=== PATIENT | male | born 1950 | race Caucasian/White ===

== ENCOUNTER 2017-02-12 08:27 | Day surgery (SDC) | payer MEDICARE ==
[2017-02-07 09:00] VITALS: BMI 32.2
[~2017-02-12 08:27] MED LIST: LACTATED RINGERS 1,000 ML IV SCH; LIDOCAINE 1% 20 ML VIAL (10MG/ML) FOR IV START INTRADERMA PRN
[2017-02-12 08:37] VITALS: TEMP 98.1
[2017-02-12] MEDS ORDERED: LACTATED RINGERS 1,000 ML IV ONE (08:39)
[2017-02-12] MEDS ORDERED: PROPOFOL 10 MG/ML 20 ML VIAL IV ONE (09:44)
--- NOTE | 2017-02-12 09:48 | P.GSHP ---
History of Present Illness H&P Date: 02/12/17 Chief Complaint: Screening Patient here today for colonoscopy. He has not had one for at least the last 5 years. He does have a history of previous polyps. He has had a colon resection for diverticulitis. He has had some vague left-sided abdominal pain at times. Past Medical History Past Medical History: Asthma, Cancer Additional Past Medical History / Comment(s): HX: Diverticulitis, prostate adenocarcinoma with surgery, L ear melanoma with sx, renal calculi with sx, sinus problems, psoriasis, small airway obstruction. History of Any Multi-Drug Resistant Organisms: None Reported Past Surgical History: Bowel Resection, Hernia Repair, Prostate Surgery Additional Past Surgical History / Comment(s): Open radical prostatectomy, L ear melanoma removed, low anterior bowel resection, extracorporeal shock wave lithrotripsy L renal calculi, bilateral kidney stone removal, bilateral inguinal hernia repairs. Past Anesthesia/Blood Transfusion Reactions: No Reported Reaction Additional Past Anesthesia/Blood Transfusion Reaction / Comment(s): Pt has never recieved blood. Past Psychological History: No Psychological Hx Reported Smoking Status: Never smoker Past Alcohol Use History: Occasional Past Drug Use History: None Reported - Past Family History Father Family Medical History: Cancer Additional Family Medical History / Comment(s): Father of prostate cancer. Mother Family Medical History: Myocardial Infarction ([place]) Additional Family Medical History / Comment(s): Mother had a CO in her 70's. Brother(s) Family Medical History: Myocardial Infarction ([place]) Additional Family Medical History / Comment(s): Brother of a CO in his upper 60's. Medications and Allergies Home Medications Medication Instructions Recorded Confirmed Type Budesonide/Formoterol Fumarate 1 puff INHALATION RT-BID 06/30/16 02/07/17 History [Symbicort 160-4.5 Mcg Inhaler] Cetirizine HCl [Zyrtec] 10 mg PO DAILY 06/30/16 02/07/17 History Cholecalciferol [Vitamin D3] 2,000 unit PO DAILY 06/30/16 02/07/17 History Fluticasone Nasal [place] [Flonase 2 spr EA NOSTRIL DAILY PRN 06/30/16 02/07/17 History Nasal [place]] Hydrochlorothiazide 12.5 mg PO DAILY 06/30/16 02/07/17 History guaiFENesin SYRUP 100MG/5ML 300 mg PO Q6H PRN 06/30/16 02/07/17 History [Robitussin] guaiFENesin [Mucinex] 600 mg PO BID PRN 06/30/16 02/07/17 History Montelukast [Singulair] 10 mg PO HS 02/07/17 02/07/17 History Ranitidine HCl [Zantac] 75 mg PO BID 02/07/17 02/07/17 History Allergies Allergy/AdvReac Type Severity Reaction Status Date / Time No Known Allergies Allergy Verified 02/07/17 08:51 Surgical - Exam Vital Signs Temp Pulse Resp BP Pulse Ox 98.1 F 98 18 146/96 95 02/12/17 08:36 02/12/17 08:36 02/12/17 08:36 02/12/17 08:36 02/12/17 08:36 Physical exam: General: Well-developed, well-nourished HEENT: Normocephalic, sclerae nonicteric Abdomen: Nontender, nondistended Extremities: No edema Neuro: Alert and oriented Assessment and Plan (1) Colon cancer screening Narrative/Plan: Will proceed with colonoscopy at this time. Status: Acute
--- NOTE | 2017-02-12 10:03 | P.PCN ---
Date of Procedure: 02/12/17 Preoperative Diagnosis: Postoperative Diagnosis: Procedure(s) Performed: PREOPERATIVE DIAGNOSIS: History of polyps, screening POSTOPERATIVE DIAGNOSIS: Small rectal polyp, diverticulosis PROCEDURE: Colonoscopy with snare polypectomy ANESTHESIA: MAC SURGEON: Eric Gates M.D. SPECIMENS: Rectal polyp ENDOSCOPIC PROCEDURE: The patient was placed on the endoscopy table in the left decubitus position. The Olympus colonoscope was inserted into the anus and passed under direct visualization to the base of the cecum. The appendiceal orifice was visualized. From that point the scope was slowly withdrawn inspecting all surfaces carefully. There were no neoplastic inflammatory or polypoid lesions throughout the cecum, ascending, transverse, or descending colon. The anastomosis from the previous sigmoid resection was visualized and widely patent. A small polyp was seen distal to that in the rectum and this was removed using the snare with cautery technique. The remainder the rectum appeared normal. The patient still had diverticulosis seen scattered throughout the colon. Digital rectal examination was normal. The patient was taken to the recovery room in stable condition per anesthesia guidelines. RECOMMENDATIONS: Await biopsy results. Follow colonoscopy 5 years. Implants: Indications for Procedure: Operative Findings: Description of Procedure:
[2017-02-12 10:11] VITALS: BP 120/73; RESP 16
[2017-02-12 10:19] VITALS: PULSE 88
== END 2017-02-12 10:48 | disposition home or self-care (01) ==
LOC: ORWHC2ENDO 08:27
PROVIDERS: ATTEND Surgery
DX: Z12.11 Encounter for screening for malignant neoplasm of colon (principal); K62.1 Rectal polyp; K57.30 Diverticulosis of large intestine without perforation or abscess without bleeding; Z86.010 Personal history of colon polyps; Z90.49 Acquired absence of other specified parts of digestive tract; Z87.19 Personal history of other diseases of the digestive system; J45.909 Unspecified asthma, uncomplicated; I10 Essential (primary) hypertension; Z79.51 Long term (current) use of inhaled steroids; Z79.899 Other long term (current) drug therapy
CPT/HCPCS: 88305; 45385; J2704

== ENCOUNTER → 2017-10-02 | Outpatient (CLI) | payer MEDICARE ==
[2017-10-02 09:55] LABS: ALT 88 U/L (21-72); AST 43 U/L (17-59); Cholesterol 142 mg/dL (<200); Creatine Kinase 56 U/L (55-170); HDL Cholesterol 35 mg/dL (40-60); LDL Cholesterol,Calculated 80 mg/dL (0-99); Triglycerides 133 mg/dL (<150)
[2017-10-03 03:44] LABS: Hepatitis A Ab, Total Non-Reactive (Non-Reactive); Hepatitis A Antibody IgM Non-Reactive (Non-Reactive)
== END | disposition home or self-care (01) ==
LOC: LABWHC1 08:52
PROVIDERS: ATTEND Internal Medicine Interventional Cardiology
DX: E78.5 Hyperlipidemia, unspecified (principal); R74.8 Abnormal levels of other serum enzymes
CPT/HCPCS: 36415; 80061; 82550; 82977; 84450; 84460; 86708; 86709

== ENCOUNTER 2017-10-19 22:04 | Emergency (ER) | payer MEDICARE ==
[2017-10-19] MEDS ORDERED: SODIUM CHLORIDE 0.9% 1,000 ML IV STA (23:07)
[2017-10-19 23:45] LABS: Basophils # (A) 0.1 k/uL (0-0.2); Basophils % (A) 1 %; Eosinophils # (A) 0.5 k/uL (0-0.7); Eosinophils % (A) 6 %; HCT 44.3 % (39.0-53.0); Lymphocytes # (A) 2.9 k/uL (1.0-4.8); Lymphocytes % (A) 29 %; MCH 28.3 pg (25.0-35.0); MCHC 33.8 g/dL (31.0-37.0); MCV 83.9 fL (80.0-100.0); Mean Platelet Volume 7.5; Monocytes # (A) 0.7 k/uL (0-1.0); Monocytes % (A) 7 %; Neutrophils # (A) 5.5 k/uL (1.3-7.7); Neutrophils % (A) 55 %; Platelet Count 253 k/uL (150-450); RBC 5.28 m/uL (4.30-5.90); RDW 13.3 % (11.5-15.5); WBC 9.9 k/uL (3.8-10.6)
[2017-10-19] MEDS ORDERED: SODIUM CHLORIDE 0.9% 1,000 ML IV SCH (23:45)
[2017-10-19] MEDS ORDERED: cloNIDine HCL 0.2 MG TAB PO STA (23:52)
[2017-10-19 23:53] LABS: Partial Thromboplastin Time 24.2 sec (22.0-30.0); Prothrombin Time 9.9 sec (9.0-12.0)
--- NOTE | 2017-10-19 23:53 | ED ---
Neuro HPI - General Chief Complaint: Neuro Symptoms/Deficit Stated Complaint: numbness in arm & legs Time Seen by Provider: 10/19/17 22:50 Source: patient, RN notes reviewed, old records reviewed Mode of arrival: ambulatory Limitations: no limitations - History of Present Illness Is the patient presenting with stroke symptoms?: No Initial Comments: This patient is a 67-year-old male presents emergency department today with an episode of left hand numbness sensation and paresthesias that lasted for approximately 5 minutes. He states that shortly after the left hand symptoms he had some paresthesias going to his right thigh. He states he had no motor deficits. He reports that he has no history of TIAs or any other neurological disorders. Patient states that he does have a history of high blood pressure and asthma. He denies any chest pain or shortness of breath. He states he had an episode where he felt dizzy the past day but states he feels fine at this time. Patient reports that he was concerned of his paresthesia symptoms and wanted to be checked out to make sure he was not having any issues with his heart or stroke. He arrives with mildly elevated blood pressure. He states that he takes his medication regularly. - Related Data Home Medications: Home Medications Medication Instructions Recorded Confirmed Budesonide/Formoterol Fumarate 1 puff INHALATION RT-BID 06/30/16 10/19/17 [Symbicort 160-4.5 Mcg Inhaler] Cetirizine HCl [Zyrtec] 10 mg PO DAILY 06/30/16 10/19/17 Cholecalciferol [Vitamin D3] 2,000 unit PO DAILY 06/30/16 10/19/17 Hydrochlorothiazide 12.5 mg PO DAILY 06/30/16 10/19/17 guaiFENesin [Mucinex] 600 mg PO BID PRN 06/30/16 10/19/17 Montelukast [Singulair] 10 mg PO HS 02/07/17 10/19/17 Ranitidine HCl [Zantac] 75 mg PO BID 02/07/17 10/19/17 Allergies/Adverse Reactions: Allergies Allergy/AdvReac Type Severity Reaction Status Date / Time No Known Allergies Allergy Verified 10/19/17 22:34 Review of Systems ROS Statement: Those systems with pertinent positive or pertinent negative responses have been documented in the HPI. ROS Other: All systems not noted in ROS Statement are negative. General Exam - General Exam Comments Initial Comments: Well-appearing alert and oriented 67-year-old male. No acute distress. Limitations: no limitations Head exam: Present: atraumatic, normocephalic, normal inspection Eye exam: Present: normal appearance, PERRL, EOMI. Absent: scleral icterus, conjunctival injection, periorbital swelling ENT exam: Present: normal exam, mucous membranes moist Neck exam: Present: normal inspection. Absent: tenderness, meningismus, lymphadenopathy Respiratory exam: Present: normal lung sounds bilaterally. Absent: respiratory distress, wheezes, rales, rhonchi, stridor Cardiovascular Exam: Present: regular rate, normal rhythm, normal heart sounds. Absent: systolic murmur, diastolic murmur, rubs, gallop, clicks GI/Abdominal exam: Present: soft, normal bowel sounds. Absent: distended, tenderness, guarding, rebound, rigid Extremities exam: Present: normal inspection, full ROM, normal capillary refill. Absent: tenderness, pedal edema, joint swelling, calf tenderness Back exam: Present: normal inspection Neurological exam: Present: alert Expanded Patient oriented to: Present: person, place, time Speech: Present: fluid speech Cranial nerves: EOM's Intact: Normal, Facial Sensation: Normal Cerebellar function: Finger to Nose: Normal Upper motor neuron: Pronator Drift: Normal Sensory exam: Upper Extremity Light Touch: Normal, Lower Extremity Light Touch: Normal Motor strength exam: RUE: 5, LUE: 5, RLE: 5, LLE: 5 Eye Response: (4) open spontaneously Motor Response: (6) obeys commands Verbal Response: (5) oriented [place] Total: 15 Psychiatric exam: Present: normal affect, normal mood Stroke MDM - Lab Data Result diagrams: 10/19/17 23:23 10/19/17 23:23 Lab Results 10/19/17 10/19/17 10/19/17 Range/Units 23:23 23:23 23:23 WBC 9.9 (3.8-10.6) k/uL RBC 5.28 (4.30-5.90) m/uL Hgb 15.0 (13.0-17.5) gm/dL Hct 44.3 (39.0-53.0) % MCV 83.9 (80.0-100.0) fL MCH 28.3 (25.0-35.0) pg MCHC 33.8 (31.0-37.0) g/dL RDW 13.3 (11.5-15.5) % Plt Count 253 (150-450) k/uL Neutrophils % 55 % Lymphocytes % 29 % Monocytes % 7 % Eosinophils % 6 % Basophils % 1 % Neutrophils # 5.5 (1.3-7.7) k/uL Lymphocytes # 2.9 (1.0-4.8) k/uL Monocytes # 0.7 (0-1.0) k/uL Eosinophils # 0.5 (0-0.7) k/uL Basophils # 0.1 (0-0.2) k/uL PT (9.0-12.0) sec INR (<1.2) APTT (22.0-30.0) sec Sodium 143 (137-145) mmol/L Potassium 3.6 (3.5-5.1) mmol/L Chloride 104 (98-107) mmol/L Carbon Dioxide 25 (22-30) mmol/L Anion Gap 14 mmol/L BUN 18 (9-20) mg/dL Creatinine 0.90 (0.66-1.25) mg/dL Est GFR (CKD-EPI)AfAm >90 (>60 ml/min/1.73 sqM) Est GFR (CKD-EPI)NonAf 89 (>60 ml/min/1.73 sqM) Glucose 140 H (74-99) mg/dL Calcium 9.7 (8.4-10.2) mg/dL Magnesium 1.7 (1.6-2.3) mg/dL Total Bilirubin 0.4 (0.2-1.3) mg/dL AST 30 (17-59) U/L ALT 51 (21-72) U/L Alkaline Phosphatase 54 (38-126) U/L Total Creatine Kinase 42 L (55-170) U/L CK-MB (CK-2) 0.5 (0.0-2.4) ng/mL CK-MB (CK-2) Rel Index 1.2 Troponin I <0.012 (0.000-0.034) ng/mL Total Protein 6.8 (6.3-8.2) g/dL Albumin 3.9 (3.5-5.0) g/dL Urine Color Urine Appearance (Clear) Urine pH (5.0-8.0) Ur Specific [place] (1.001-1.035) Urine Protein (Negative) Urine Glucose (UA) (Negative) Urine Ketones (Negative) Urine Blood (Negative) Urine Nitrite (Negative) Urine Bilirubin (Negative) Urine Urobilinogen (<2.0) mg/dL Ur Leukocyte Esterase (Negative) 10/19/17 10/19/17 Range/Units 23:23 23:51 WBC (3.8-10.6) k/uL RBC (4.30-5.90) m/uL Hgb (13.0-17.5) gm/dL Hct (39.0-53.0) % MCV (80.0-100.0) fL MCH (25.0-35.0) pg MCHC (31.0-37.0) g/dL RDW (11.5-15.5) % Plt Count (150-450) k/uL Neutrophils % % Lymphocytes % % Monocytes % % Eosinophils % % Basophils % % Neutrophils # (1.3-7.7) k/uL Lymphocytes # (1.0-4.8) k/uL Monocytes # (0-1.0) k/uL Eosinophils # (0-0.7) k/uL Basophils # (0-0.2) k/uL PT 9.9 (9.0-12.0) sec INR 1.0 (<1.2) APTT 24.2 (22.0-30.0) sec Sodium (137-145) mmol/L Potassium (3.5-5.1) mmol/L Chloride (98-107) mmol/L Carbon Dioxide (22-30) mmol/L Anion Gap mmol/L BUN (9-20) mg/dL Creatinine (0.66-1.25) mg/dL Est GFR (CKD-EPI)AfAm (>60 ml/min/1.73 sqM) Est GFR (CKD-EPI)NonAf (>60 ml/min/1.73 sqM) Glucose (74-99) mg/dL Calcium (8.4-10.2) mg/dL Magnesium (1.6-2.3) mg/dL Total Bilirubin (0.2-1.3) mg/dL AST (17-59) U/L ALT (21-72) U/L Alkaline Phosphatase (38-126) U/L Total Creatine Kinase (55-170) U/L CK-MB (CK-2) (0.0-2.4) ng/mL CK-MB (CK-2) Rel Index Troponin I (0.000-0.034) ng/mL Total Protein (6.3-8.2) g/dL Albumin (3.5-5.0) g/dL Urine Color Yellow Urine Appearance Clear (Clear) Urine pH 6.5 (5.0-8.0) Ur Specific [place] 1.019 (1.001-1.035) Urine Protein Negative (Negative) Urine Glucose (UA) Negative (Negative) Urine Ketones Negative (Negative) Urine Blood Negative (Negative) Urine Nitrite Negative (Negative) Urine Bilirubin Negative (Negative) Urine Urobilinogen <2.0 (<2.0) mg/dL Ur Leukocyte Esterase Negative (Negative) - NIH Stroke Scale 1a. Level of Consciousness: (0) alert 1b. LOC Questions: (0) answers correctly 1c. LOC Commands: (0) performs tasks correctly 2. Best Gaze: (0) normal 3. Visual: (0) no visual loss 4. Facial Palsy: (0) normal symmetrical movement 5a. Motor Arm Left: (0) no drift 5b. Motor Arm Right: (0) no drift 6a. Motor Leg Left: (0) no drift 6b. Motor Leg Right: (0) no drift 7. Limb Ataxia: (0) absent 8. Sensory: (0) normal 9. Best Language: (0) no aphasia 10. Dysarthria: (0) normal 11. Extinction/Inattention: (0) no abnormality NIH Score total: 0 - Medical Decision Making Patient 67-year-old male with a history of paresthesias of the left hand and then shortly after his right thigh. He states this happened for approximately 10 minutes and subsided. Denies any significant headache chest pain shortness of breath. Return to the symptoms and wanted to rule out stroke or any cardiac issues. This time patient's EKG was reviewed. Shows right bundle-branch block. He had minimal voltage [place] for LVH. Patient reports that he is had this known on his EKGs. Troponins are negative. CBC is normal. Chest x- ray is normal. CT brain and C-spine are negative. He has no focal or lateralizing findings on neuro exam. Patient otherwise appears chronically well. Discussed possible [place] for further evaluation regards to episode of dizziness and these paresthesias and possible TIA. Patient elects to go home. ABCD score is less than 1%. Patient will be discharged home at this time. Discussed the importance of following up with primary care provider tomorrow. All questions were answered and return parameters were discussed. - EKG Data -: EKG Interpreted by Me EKG shows normal: sinus rhythm 10/20/17 04:02 EKG shows sinus rhythm,) arrange block. Left anterior fascicular block. Minimal voltage criteria for LVH. Ventricular rate of 80 bpm. RI interval 140 ms. QRS duration 142 ms. QT QTc is 380/505 ms. Past Medical History Past Medical History: Asthma, Cancer Additional Past Medical History / Comment(s): HX: Diverticulitis, prostate adenocarcinoma with surgery, L ear melanoma with sx, renal calculi with sx, sinus problems, psoriasis, small airway obstruction. History of Any Multi-Drug Resistant Organisms: None Reported Past Surgical History: Bowel Resection, Hernia Repair, Prostate Surgery Additional Past Surgical History / Comment(s): Open radical prostatectomy, L ear melanoma removed, low anterior bowel resection, extracorporeal shock wave lithrotripsy L renal calculi, bilateral kidney stone removal, bilateral inguinal hernia repairs. Past Anesthesia/Blood Transfusion Reactions: No Reported Reaction Additional Past Anesthesia/Blood Transfusion Reaction / Comment(s): Pt has never recieved blood. Past Psychological History: No Psychological Hx Reported Smoking Status: Never smoker Past Alcohol Use History: Occasional Past Drug Use History: None Reported - Past Family History Father Family Medical History: Cancer Additional Family Medical History / Comment(s): Father of prostate cancer. Mother Family Medical History: Myocardial Infarction ([place]) Additional Family Medical History / Comment(s): Mother had a [place] in her 70's. Brother(s) Family Medical History: Myocardial Infarction ([place]) Additional Family Medical History / Comment(s): Brother of a [place] in his upper 60's. Course Vital Signs 10/19/17 10/20/17 10/20/17 22:11 00:17 01:48 Temperature 98.2 F 97.7 F Pulse Rate 80 68 88 Respiratory 16 18 18 Rate Blood Pressure 186/93 166/79 166/88 O2 Sat by Pulse 96 98 98 Oximetry Disposition Clinical Impression: Paresthesias Disposition: HOME SELF-CARE Condition: Good Instructions: Paresthesia (ED) Additional Instructions: Advised to a follow-up with primary care provider. Return to emergency department if any alarming signs or symptoms occur. Referrals: Sal Cerna MD [Primary Care Provider] - 1-2 days Kanchan Samayoa MD [STAFF PHYSICIAN] - 1-2 days Ricardo Mesa MD [STAFF PHYSICIAN] - 1-2 days Time of Disposition: 01:10
[2017-10-19 23:58] LABS: ALT 51 U/L (21-72); AST 30 U/L (17-59); Albumin 3.9 g/dL (3.5-5.0); Alkaline Phosphatase 54 U/L (38-126); Anion Gap 14 mmol/L; Blood Urea Nitrogen 18 mg/dL (9-20); Calcium 9.7 mg/dL (8.4-10.2); Carbon Dioxide 25 mmol/L (22-30); Chloride 104 mmol/L (98-107); Glucose 140 mg/dL (74-99); Magnesium 1.7 mg/dL (1.6-2.3); Potassium 3.6 mmol/L (3.5-5.1); Sodium 143 mmol/L (137-145); Total Bilirubin 0.4 mg/dL (0.2-1.3); Total Protein 6.8 g/dL (6.3-8.2)
--- NOTE | 2017-10-20 00:10 | XR ---
EXAMINATION TYPE: XR chest 2V DATE OF EXAM: 10/20/2017 COMPARISON: 06/30/2016 HISTORY: Altered mental status TECHNIQUE: Frontal and lateral views of the chest are obtained. FINDINGS: Heart and mediastinum are normal. Lungs are clear. Costophrenic angles are clear. There ar e chest leads. Bony thorax is intact. IMPRESSION: No active cardiopulmonary disease. No change.
[2017-10-20 00:18] VITALS: RESP 18
[2017-10-20 00:22] LABS: Appearance,Urine Clear (Clear); Bilirubin,Urine Negative (Negative); Blood,Urine Negative (Negative); Color,Urine Yellow; Glucose,Urine (UA) Negative (Negative); Ketones,Urine Negative (Negative); Leukocyte Esterase,Urine Negative (Negative); Nitrite,Urine Negative (Negative); PH, Urine 6.5 (5.0-8.0); Protein,Urine Negative (Negative); Specific Gravity,Urine 1.019 (1.001-1.035); Urobilinogen,Urine <2.0 mg/dL (<2.0)
[2017-10-20 00:25] LABS: Creatine Kinase 42 U/L (55-170)
--- NOTE | 2017-10-20 00:33 | CT ---
EXAMINATION TYPE: CT brain wo con DATE OF EXAM: 10/20/2017 COMPARISON: NONE HISTORY: numbness CT DLP: 1108.40 mGycm Automated exposure control for dose reduction was used. FINDINGS: Ventricles and sulci are within normal limits for age. There is no mass effect nor midline shift. The re is no sign of intracranial hemorrhage. The calvarium is intact. IMPRESSION: NEGATIVE CT SCAN OF THE BRAIN.
[2017-10-20 00:37] LABS: Creatine Kinase MB 0.5 ng/mL (0.0-2.4); Troponin I <0.012 ng/mL (0.000-0.034)
[2017-10-20 01:50] VITALS: BP 166/88; PULSE 88; TEMP 97.7
== END 2017-10-20 01:48 | disposition home or self-care (01) ==
LOC: EC 22:04
DX: R20.2 Paresthesia of skin (principal); R42 Dizziness and giddiness; I45.10 Unspecified right bundle-branch block; Z79.51 Long term (current) use of inhaled steroids; Z79.899 Other long term (current) drug therapy
CPT/HCPCS: 36415; 70450; 71046; 80053; 81003; 82550; 82553; 83735; 84484; 85025; 85610; 85730; 93005; 96360; 96361; 99285

== ENCOUNTER → 2017-11-13 | Outpatient (CLI) | payer MEDICARE ==
--- NOTE | 2017-11-13 09:02 | MR ---
EXAMINATION TYPE: MR brain wo/w con DATE OF EXAM: 11/13/2017 COMPARISON: 10/20/2017 CT brain HISTORY: Demyelinating disease,central nervous system TECHNIQUE: Multiplanar, multisequence images of the brain and brainstem is performed without and with IV contras t, utilizing 9 mL intravenous Gadavist gadolinium contrast is administered intravenously. Demyelinat ing disease protocol with additional Sagittal Flair sequence performed. FINDINGS: T2 Lesions Present : Yes Approximate Number of Lesions: There are at least 11 within the supratentorial right hemisphere and a t least 20 within the supratentorial left hemisphere Locations Identified : Pericallosal, Periventricular, Juxtacortical Size of Reference Lesion(s): 1. Right hemisphere: 0.5 cm x 0.7 cm x 0.5 cm on axial image 18 and sagittal image 29 2. Left hemisphere: 0.8 cm x 0.8 cm x 1.0 cm on axial image 18 and sagittal image 14 Enhancing Lesion(s) Present: None Change from Prior: No prior MR for comparison. Diffusion weighted images demonstrate no evidence of a recent infarct or other diffusion abnormality. There is no worrisome extra-axial fluid collection. The ventricular system and cisternal spaces ar e normal in size and appearance. The brain volume is age appropriate. Midline structures demonstrate normal morphology. The craniocervical junction appears within normal limits. Post contrast images demonstrate no abnormal enhancement. The dural venous sinuses appear pa tent. Moderate mucosal thickening is seen within the ethmoid sinuses and mucosal retention cysts are noted within the maxillary sinuses measuring 1.1 cm on the right and 0.7 cm on the left. Orbits are u nremarkable without optic nerve enhancement. IMPRESSION: 1. Moderate burden bilateral supratentorial pericallosal, periventricular and juxtacortical white mat ter changes in keeping with the patient's history of demyelinating disease without lesions that restr icted diffusion or enhancement to indicate active demyelination at this time. 2. No abnormal enhancement of the optic nerves or infratentorial lesions.
== END ==
LOC: RADMRIMAIN 11-12 06:52
PROVIDERS: ATTEND Internal Medicine
DX: G37.9 Demyelinating disease of central nervous system, unspecified (principal)
CPT/HCPCS: 70553; A9581

== ENCOUNTER → 2017-11-17 | Outpatient (CLI) | payer MEDICARE ==
[2017-11-17 16:30] LABS: Rheumatoid Factor 17 IU/mL (0-15)
[2017-11-17 17:41] LABS: HIV AB P24 Non-Reactive (Non-Reactive); HIV P24 AG Non-Reactive (Non-Reactive)
== END | disposition home or self-care (01) ==
LOC: LABWHC1 08:49
PROVIDERS: ATTEND Internal Medicine
DX: G37.9 Demyelinating disease of central nervous system, unspecified (principal)
CPT/HCPCS: 36415; 82164; 82607; 84443; 85652; 86038; 86140; 86431; 86618; 86780; 87390

== ENCOUNTER → 2017-12-24 | Outpatient (CLI) | payer MEDICARE ==
[2017-12-24 10:00] LABS: Bilirubin, Delta 0.3 mg/dL (0.0-0.2); Bilirubin,Unconjugated 0.3 mg/dL (0.0-1.1); Calcium 9.6 mg/dL (8.4-10.2); Total Bilirubin 0.6 mg/dL (0.2-1.3)
[2017-12-24 18:10] LABS: Parathyroid Hormone Intact 72.6 pg/mL (14.0-72.0)
[2017-12-24 19:26] LABS: Cardiolipin Ab IgG Interp NEGATIVE (NEGATIVE); Cardiolipin Ab IgM Interp NEGATIVE (NEGATIVE); Cardiolipin IgA Antibody 0.5 U/mL; Cardiolipin IgM Antibody 1.4 U/mL
[2017-12-25 05:10] LABS: Toxoplasma Antibody (IgG) 15.6 IU/mL (<7.2); Toxoplasma Antibody (IgM) <3.0 AU/mL (<8.0)
[2017-12-25 12:37] LABS: Immunoglobulin M 76.2 mg/dL (40.0-280.0)
[2017-12-26 07:30] LABS: Mycoplasma IgM Antibody 0.26 INDEX (<=0.90)
== END | disposition home or self-care (01) ==
LOC: LABWHC1 08:38
PROVIDERS: ATTEND Internal Medicine Infectious Disease
DX: A69.20 Lyme disease, unspecified (principal)
CPT/HCPCS: 36415; 82248; 82310; 82784; 82785; 83970; 84075; 84450; 86038; 86147; 86611; 86631; 86632; 86698; 86738; 86777; 86778; 87327

== ENCOUNTER → 2017-12-26 | Outpatient (CLI) | payer MEDICARE ==
--- NOTE | 2017-12-26 10:13 | US ---
EXAMINATION TYPE: US abdomen limited DATE OF EXAM: 12/26/2017 COMPARISON: CT abdomen and pelvis June 30, 2016. Complete abdominal ultrasound October 07, 2013. CLINICAL HISTORY: elevated liver enzymes. Elevated liver enzymes EXAM MEASUREMENTS: Liver Length: 15.0 cm Gallbladder Wall: 0.3 cm CBD: 0.4 cm Right Kidney: 10.9 x 5.3 x 5.2 cm Technical limitations due to large amount of overlying bowel content Pancreas: Obscured by bowel gas Liver: attenuating, unable to penetrate Gallbladder: gallstones Evidence for sonographic Merida's sign: no CBD: limited evaluation Right Kidney: no evidence of hydronephrosis Pancreas is suboptimally seen on images saved secondary to shadowing from overlying bowel gas. Liver remains markedly heterogeneously hyperechoic consistent with fatty infiltration. No intrahepatic duct al dilatation is seen. No suspicious masses are identified in images saved. Single dependent gallston e is seen in gallbladder. No surrounding inflammatory changes noted. IMPRESSION: Marked fatty infiltration of liver is once again felt present.
== END | disposition home or self-care (01) ==
LOC: RADUSMAIN 09:11
PROVIDERS: ATTEND Internal Medicine Infectious Disease
DX: K76.0 Fatty (change of) liver, not elsewhere classified (principal)
CPT/HCPCS: 76705

== ENCOUNTER 2018-07-20 07:10 | Inpatient (IN) | payer MEDICARE ==
[2018-07-20] MEDS ORDERED: SODIUM CHLORIDE 0.9% 1,000 ML IV STA (07:23)
[2018-07-20] MEDS ORDERED: ONDANSETRON 4 MG/2 ML VIAL IVP STA (07:23)
[2018-07-20] MEDS ORDERED: MORPHINE SULFATE 4 MG/ML SYRINGE IV STA (07:23)
--- NOTE | 2018-07-20 08:02 | ED ---
Abdominal Pain HPI - General Source: patient Mode of arrival: ambulatory Limitations: no limitations <Sonja Metzger - Last Filed: 07/20/18 09:45> <Og Casarez - Last Filed: 07/20/18 09:57> - General Chief Complaint: Abdominal Pain Stated Complaint: Abdominal Pain Time Seen by Provider: 07/20/18 07:19 - History of Present Illness Initial Comments: 68-year-old male patient presents to the emergency department today for evaluation of left-sided abdominal pain. Patient states the pain started last evening and seems to have worsened throughout the night. Patient states he has been somewhat constipated. Denies any hematochezia or melena. Denies any nausea or vomiting. Patient states he has started feeling feverish and chilled this morning. Patient does have history of diverticulitis and has had colon resection in the past. Patient states the pain feels similar to the previous episode. Last colonoscopy was two years ago (2015). Patient denies any recent rash, shortness breath, chest pain, back pain, numbness, tingling, dizziness, weakness, hematuria, dysuria, urinary urgency, urinary frequency, headache, visual changes, or any other complaints. (Sonja Metzger) - Related Data Home Medications Medication Instructions Recorded Confirmed Budesonide/Formoterol Fumarate 1 puff INHALATION RT-BID 06/30/16 10/19/17 [Symbicort 160-4.5 Mcg Inhaler] Cetirizine HCl [Zyrtec] 10 mg PO DAILY 06/30/16 10/19/17 Cholecalciferol [Vitamin D3] 2,000 unit PO DAILY 06/30/16 10/19/17 Hydrochlorothiazide 12.5 mg PO DAILY 06/30/16 10/19/17 guaiFENesin [Mucinex] 600 mg PO BID PRN 06/30/16 10/19/17 Montelukast [Singulair] 10 mg PO HS 02/07/17 10/19/17 Ranitidine HCl [Zantac] 75 mg PO BID 02/07/17 10/19/17 Allergies Allergy/AdvReac Type Severity Reaction Status Date / Time No Known Allergies Allergy Verified 07/20/18 07:16 Review of Systems ROS Other: All systems not noted in ROS Statement are negative. <Sonja Metzger - Last Filed: 07/20/18 09:45> ROS Other: All systems not noted in ROS Statement are negative. <Og Casarez - Last Filed: 07/20/18 09:57> ROS Statement: Those systems with pertinent positive or pertinent negative responses have been documented in the HPI. Past Medical History Past Medical History: Asthma, Cancer Additional Past Medical History / Comment(s): HX: Diverticulitis, prostate adenocarcinoma with surgery, L ear melanoma with sx, renal calculi with sx, sinus problems, psoriasis, small airway obstruction. History of Any Multi-Drug Resistant Organisms: None Reported Past Surgical History: Bowel Resection, Hernia Repair, Prostate Surgery Additional Past Surgical History / Comment(s): Open radical prostatectomy, L ear melanoma removed, low anterior bowel resection, extracorporeal shock wave lithrotripsy L renal calculi, bilateral kidney stone removal, bilateral inguinal hernia repairs. Past Anesthesia/Blood Transfusion Reactions: No Reported Reaction Additional Past Anesthesia/Blood Transfusion Reaction / Comment(s): Pt has never recieved blood. Past Psychological History: No Psychological Hx Reported Smoking Status: Never smoker Past Alcohol Use History: Occasional Past Drug Use History: None Reported - Past Family History Father Family Medical History: Cancer Additional Family Medical History / Comment(s): Father of prostate cancer. Mother Family Medical History: Myocardial Infarction (CA) Additional Family Medical History / Comment(s): Mother had a CA in her 70's. Brother(s) Family Medical History: Myocardial Infarction (CA) Additional Family Medical History / Comment(s): Brother of a CA in his upper 60's. <Sonja Metzger - Last Filed: 07/20/18 09:45> General Exam Limitations: no limitations General appearance: alert, in no apparent distress, other (This is a well- developed, well-nourished adult male patient in no acute distress. Vital signs upon presentation are temperature 100.0F, pulse 106, respirations 16, blood pressure 149/81, pulse ox 96% on room air.) Eye exam: Present: normal appearance, PERRL, EOMI. Absent: scleral icterus, conjunctival injection, periorbital swelling ENT exam: Present: normal exam, normal oropharynx, mucous membranes moist Respiratory exam: Present: normal lung sounds bilaterally. Absent: respiratory distress, wheezes, rales, rhonchi, stridor Cardiovascular Exam: Present: regular rate, normal rhythm, normal heart sounds. Absent: systolic murmur, diastolic murmur, rubs, gallop, clicks GI/Abdominal exam: Present: soft, tenderness (Left upper quadrant and left lower quadrant tenderness), normal bowel sounds. Absent: distended, guarding, rebound, rigid Neurological exam: Present: alert, oriented X3, CN II-XII intact Psychiatric exam: Present: normal affect, normal mood Skin exam: Present: warm, dry, intact, normal color. Absent: rash <Sonja Metzger - Last Filed: 07/20/18 09:45> Vital Signs 07/20/18 07/20/18 07:14 09:13 Temperature 98.3 F Pulse Rate 106 H 90 Respiratory 16 18 Rate Blood Pressure 149/81 131/74 O2 Sat by Pulse 96 98 Oximetry Medical Decision Making - Lab Data Result diagrams: 07/20/18 07:45 07/20/18 07:45 - Radiology Data Radiology results: report reviewed, image reviewed <Sonja Metzger - Last Filed: 07/20/18 09:45> - Lab Data Result diagrams: 07/20/18 07:45 07/20/18 07:45 <Og Casarez - Last Filed: 07/20/18 09:57> - Medical Decision Making 68-year-old male patient presents to the emergency department today for evaluation of left-sided abdominal pain and chills. Physical examination did reveal left upper and left lower quadrant abdominal tenderness. Labs reviewed and did reveal white blood cell count of 16.4 with a neutrophil count at 12.5. CT abdomen and pelvis with contrast was obtained and did reveal moderate left- sided acute diverticulitis with no perforation or abscess noted. Patient will be started on Levaquin and Flagyl and admitted to the hospital for further evaluation and surgical consult. Did discuss findings and results with the patient, he is agreeable with the plan. (Sonja Metzger) Patient reevaluated and reexamined by myself, Dr. Casarez. Patient resting comfortably in bed. Abdomen is soft with moderate tenderness in the left side. Patient does meet sepsis criteria diagnosed at 9:45 AM. Blood culture and lactic acid and IV antibiotics have all been ordered. I do agree with PA findings. This includes all diagnostic evaluation and results as well as treatment plan. Patient and family are updated on results and plan. Case was discussed in detail with Dr. Duke, who will admit covering for Dr. Romero. ( Og Casarez) - Lab Data Lab Results 07/20/18 07/20/18 07/20/18 Range/Units 07:29 07:45 07:45 WBC 16.4 H (3.8-10.6) k/uL RBC 5.22 (4.30-5.90) m/uL Hgb 15.4 (13.0-17.5) gm/dL Hct 45.1 (39.0-53.0) % MCV 86.3 (80.0-100.0) fL MCH 29.4 (25.0-35.0) pg MCHC 34.1 (31.0-37.0) g/dL RDW 13.2 (11.5-15.5) % Plt Count 225 (150-450) k/uL Neutrophils % 76 % Lymphocytes % 12 % Monocytes % 8 % Eosinophils % 3 % Basophils % 0 % Neutrophils # 12.5 H (1.3-7.7) k/uL Lymphocytes # 1.9 (1.0-4.8) k/uL Monocytes # 1.3 H (0-1.0) k/uL Eosinophils # 0.4 (0-0.7) k/uL Basophils # 0.0 (0-0.2) k/uL Sodium 142 (137-145) mmol/L Potassium 4.0 (3.5-5.1) mmol/L Chloride 108 H (98-107) mmol/L Carbon Dioxide 24 (22-30) mmol/L Anion Gap 10 mmol/L BUN 16 (9-20) mg/dL Creatinine 0.97 (0.66-1.25) mg/dL Est GFR (CKD-EPI)AfAm >90 (>60 ml/min/1.73 sqM) Est GFR (CKD-EPI)NonAf 81 (>60 ml/min/1.73 sqM) Glucose 125 H (74-99) mg/dL Plasma Lactic Acid Reji (0.7-2.0) mmol/L Calcium 9.3 (8.4-10.2) mg/dL Total Bilirubin 1.4 H (0.2-1.3) mg/dL AST 26 (17-59) U/L ALT 49 (21-72) U/L Alkaline Phosphatase 54 (38-126) U/L Total Protein 6.6 (6.3-8.2) g/dL Albumin 3.8 (3.5-5.0) g/dL Amylase 41 (30-110) U/L Lipase 143 (23-300) U/L Urine Color Yellow Urine Appearance Clear (Clear) Urine pH 7.0 (5.0-8.0) Ur Specific Sloan 1.021 (1.001-1.035) Urine Protein 1+ H (Negative) Urine Glucose (UA) Negative (Negative) Urine Ketones Negative (Negative) Urine Blood Negative (Negative) Urine Nitrite Negative (Negative) Urine Bilirubin Negative (Negative) Urine Urobilinogen <2.0 (<2.0) mg/dL Ur Leukocyte Esterase Negative (Negative) Urine WBC 4 (0-5) /hpf Ur Squamous Epith Cells <1 (0-4) /hpf Amorphous Sediment Rare H (None) /hpf Urine Mucus Occasional H (None) /hpf 07/20/18 Range/Units 07:45 WBC (3.8-10.6) k/uL RBC (4.30-5.90) m/uL Hgb (13.0-17.5) gm/dL Hct (39.0-53.0) % MCV (80.0-100.0) fL MCH (25.0-35.0) pg MCHC (31.0-37.0) g/dL RDW (11.5-15.5) % Plt Count (150-450) k/uL Neutrophils % % Lymphocytes % % Monocytes % % Eosinophils % % Basophils % % Neutrophils # (1.3-7.7) k/uL Lymphocytes # (1.0-4.8) k/uL Monocytes # (0-1.0) k/uL Eosinophils # (0-0.7) k/uL Basophils # (0-0.2) k/uL Sodium (137-145) mmol/L Potassium (3.5-5.1) mmol/L Chloride (98-107) mmol/L Carbon Dioxide (22-30) mmol/L Anion Gap mmol/L BUN (9-20) mg/dL Creatinine (0.66-1.25) mg/dL Est GFR (CKD-EPI)AfAm (>60 ml/min/1.73 sqM) Est GFR (CKD-EPI)NonAf (>60 ml/min/1.73 sqM) Glucose (74-99) mg/dL Plasma Lactic Acid Reji 1.1 (0.7-2.0) mmol/L Calcium (8.4-10.2) mg/dL Total Bilirubin (0.2-1.3) mg/dL AST (17-59) U/L ALT (21-72) U/L Alkaline Phosphatase (38-126) U/L Total Protein (6.3-8.2) g/dL Albumin (3.5-5.0) g/dL Amylase (30-110) U/L Lipase (23-300) U/L Urine Color Urine Appearance (Clear) Urine pH (5.0-8.0) Ur Specific Sloan (1.001-1.035) Urine Protein (Negative) Urine Glucose (UA) (Negative) Urine Ketones (Negative) Urine Blood (Negative) Urine Nitrite (Negative) Urine Bilirubin (Negative) Urine Urobilinogen (<2.0) mg/dL Ur Leukocyte Esterase (Negative) Urine WBC (0-5) /hpf Ur Squamous Epith Cells (0-4) /hpf Amorphous Sediment (None) /hpf Urine Mucus (None) /hpf - Radiology Data CT abdomen and pelvis with contrast was obtained. Report is reviewed in its entirety. Impression by shows CT findings consistent with moderate left- sided acute diverticulitis. No free air or abscess present. (Sonja Metzger) Disposition Decision to Admit Reason: Admit from EC Decision Date: 07/20/18 Decision Time: 09:47 <Sonja Metzger - Last Filed: 07/20/18 09:45> <Og Casarez - Last Filed: 07/20/18 09:57> Clinical Impression: Acute diverticulitis Disposition: ADMITTED IP TO THIS [facility] Condition: Serious Referrals: Sal Cerna MD [Primary Care Provider] - 1-2 days
[2018-07-20 08:13] LABS: Basophils % (A) 0 %; Eosinophils # (A) 0.4 k/uL (0-0.7); Eosinophils % (A) 3 %; HCT 45.1 % (39.0-53.0); HGB 15.4 gm/dL (13.0-17.5); Lymphocytes # (A) 1.9 k/uL (1.0-4.8); Lymphocytes % (A) 12 %; MCH 29.4 pg (25.0-35.0); MCHC 34.1 g/dL (31.0-37.0); MCV 86.3 fL (80.0-100.0); Mean Platelet Volume 7.2; Monocytes # (A) 1.3 k/uL (0-1.0); Monocytes % (A) 8 %; Neutrophils # (A) 12.5 k/uL (1.3-7.7); Neutrophils % (A) 76 %; Platelet Count 225 k/uL (150-450); RBC 5.22 m/uL (4.30-5.90); RDW 13.2 % (11.5-15.5); WBC 16.4 k/uL (3.8-10.6)
[2018-07-20 08:15] LABS: Amorphous Sediment,Urine Rare /hpf; Appearance,Urine Clear (Clear); Bilirubin,Urine Negative (Negative); Blood,Urine Negative (Negative); Color,Urine Yellow; Glucose,Urine (UA) Negative (Negative); Ketones,Urine Negative (Negative); Leukocyte Esterase,Urine Negative (Negative); Mucus,Urine Occasional /hpf; Nitrite,Urine Negative (Negative); Protein,Urine 1+ (Negative); Specific Gravity,Urine 1.021 (1.001-1.035); Squamous Epithelial Cell,Urine <1 /hpf (0-4); Urobilinogen,Urine <2.0 mg/dL (<2.0); WBC,Urine 4 /hpf (0-5)
[2018-07-20 08:24] LABS: ALT 49 U/L (21-72); AST 26 U/L (17-59); Albumin 3.8 g/dL (3.5-5.0); Alkaline Phosphatase 54 U/L (38-126); Amylase 41 U/L (30-110); Anion Gap 10 mmol/L; Blood Urea Nitrogen 16 mg/dL (9-20); Calcium 9.3 mg/dL (8.4-10.2); Carbon Dioxide 24 mmol/L (22-30); Chloride 108 mmol/L (98-107); Glucose 125 mg/dL (74-99); Lipase 143 U/L (23-300); Sodium 142 mmol/L (137-145); Total Bilirubin 1.4 mg/dL (0.2-1.3); Total Protein 6.6 g/dL (6.3-8.2)
--- NOTE | 2018-07-20 09:19 | CT ---
EXAMINATION TYPE: CT abdomen pelvis w con DATE OF EXAM: 07/20/2018 COMPARISON: CT abdomen pelvis June 30, 2016 and older CTs HISTORY: Left lower quadrant pain-diverticulitis CT DLP: 1291.5 mGycm, Automated Exposure Control for Dose Reduction was Utilized. CONTRAST: CT scan of the abdomen and pelvis is performed without oral but with IV Contrast, patient injected wi th 100 mL of Isovue 300. FINDINGS: LUNG BASES: Coronary artery calcification is present which is noted marker for coronary artery diseas e. Linear scarring and/or atelectasis right lung base is noted LIVER/GB: Liver is diffusely low dense consistent with fatty infiltration dependent density in gallbl adder is consistent with gallbladder sludge and/or small stones axial image 28. PANCREAS: There is persistent 1.5 cm low dense lesion in the mid to distal pancreatic body axial imag e 31 favoring a thin-walled cyst, this was present in 2010 but is increased in size. This is not sign ificantly changed from most recent CT 2016. It is most likely benign given two-year stability. SPLEEN: There is 1 cm splenule in splenic hilum anteriorly axial image 26. ADRENALS: No significant abnormality is seen. KIDNEYS: There are 4-6 calculi measuring 4 mm or smaller in size scattered throughout the left kidney on current study. There is single 3 mm calculus right kidney coronal image 74. There is symmetric co rtical medullary uptake and excretion without evidence of hydronephrosis bilaterally. BOWEL: Evaluation bowel is slightly suboptimal secondary to lack of enteric contrast. Stomach is poor ly distended and thus suboptimally evaluated. There is no suspicious small or large bowel dilatation. There are diverticula throughout the colon most prominent in the left and sigmoid colon. Surgical murphy tures sigmoid rectal junction axial image 75 are redemonstrated. There is moderate ill-defined fluid and fat stranding with moderate to severe wall thickening in the left: Left mid to lower abdomen alma nal image 55 and axial image 49. CT findings are consistent with acute diverticulitis. No free air is seen. No well-formed fluid collection is noted. PROSTATE/SEMINAL VESICLES: Prostate gland is surgically absent. Numerous surgical clips are noted ext ending into the left groin. LYMPH NODES: No greater than 1cm abdominal or pelvic lymph nodes are appreciated. OSSEOUS STRUCTURES: There is vacuum disc phenomenon with moderate disc space narrowing L4-L5 level. OTHER: There is moderate calcified plaque of aorta extending into branch vessels. IMPRESSION: 1. CT findings are consistent with a moderate left-sided acute diverticulitis. No free ai r or abscess present. Follow-up colonoscopy after treatment advised due to moderate to severe underly ing wall thickening if has not been performed in last 3 years.
[2018-07-20] MEDS ORDERED: MORPHINE SULFATE 4 MG/ML SYRINGE IV PRN (09:43)
[2018-07-20] MEDS ORDERED: NALOXONE 0.4 MG/ML 1 ML VIAL IV PRN (09:43)
[2018-07-20] MEDS ORDERED: ONDANSETRON 4 MG/2 ML VIAL IVP PRN (09:43)
[2018-07-20] MEDS ORDERED: LEVOFLOXACIN 750MG-D5W PMX 750 MG in DEXTROSE/WATER 1 150ML.BAG IVPB STA (09:44)
[2018-07-20] MEDS ORDERED: SODIUM CHLORIDE 0.9% 1,000 ML IV SCH (09:45)
[2018-07-20] MEDS ORDERED: metroNIDAZOLE-NS PMX 500 MG in SALINE 1 100ML.BAG IVPB STA (09:47)
[2018-07-20] MEDS: ASPIRIN 81 MG PO SCH (13:17)
--- NOTE | 2018-07-20 15:12 | P.GSCN ---
History of Present Illness Consult date: 07/20/18 Reason for Consult: Diverticulitis History of present illness: 68-year-old male known to our service. Patient hospitalized with left-sided abdominal pain. Pain began 2 days ago. Increasing in severity. Some nausea. No vomiting. Last bowel movement Friday. Temp at home of 100.6. History of previous diverticulitis. History of previous sigmoid colectomy for diverticulitis. This was 8 years ago. CAT scan ordered and reviewed. CAT scan shows inflammatory changes involving the proximal descending colon. Review of Systems The patient denies any acute changes in vision or hearing, no dysphagia or odynophagia, no chest pain or shortness of breath, no dysuria or hematuria, no headache, no runny nose, no rectal bleeding or melena, no unexplained weight loss Past Medical History Past Medical History: Cancer Additional Past Medical History / Comment(s): Diverticulitis-had bowel resection , prostate adenocarcinoma with surgery, L ear melanoma with sx, skin cancer removed from face, renal calculi with sx, sinus problems, psoriasis, small airway obstruction, L hand finger numbness/R thigh numbness intermittent in the past, orthostatic hypotension. History of Any Multi-Drug Resistant Organisms: None Reported Past Surgical History: Bowel Resection, Hernia Repair, Prostate Surgery Additional Past Surgical History / Comment(s): Open radical prostatectomy, L ear melanoma removed, skin cancer removed from face, low anterior bowel resection, colonoscopy/benign polypectomy, extracorporeal shock wave lithrotripsy renal calculi, bilateral kidney stone removal, bilateral inguinal hernia repairs, L hydrocelectomy. Past Anesthesia/Blood Transfusion Reactions: No Reported Reaction Additional Past Anesthesia/Blood Transfusion Reaction / Comm: Pt has never recieved blood. Smoking Status: Never smoker - Past Family History Father Family Medical History: Cancer Additional Family Medical History / Comment(s): Father of prostate cancer at the age of 62yrs. Mother Family Medical History: Myocardial Infarction ([place]) Additional Family Medical History / Comment(s): Mother had a AL in her 70's. Brother(s) Family Medical History: Diabetes Mellitus, Liver Disease, Myocardial Infarction ([place]) Additional Family Medical History / Comment(s): Brother of a AL in his upper 60's. He also had hepatitis and diabetes. Medications and Allergies Home Medications Medication Instructions Recorded Confirmed Type Budesonide/Formoterol Fumarate 1 puff INHALATION RT-BID 06/30/16 07/20/18 History [Symbicort 160-4.5 Mcg Inhaler] Cetirizine HCl [Zyrtec] 10 mg PO DAILY 06/30/16 07/20/18 History Cholecalciferol [Vitamin D3] 2,000 unit PO DAILY 06/30/16 07/20/18 History Hydrochlorothiazide 12.5 mg PO DAILY 06/30/16 07/20/18 History Montelukast [Singulair] 10 mg PO HS 02/07/17 07/20/18 History Ranitidine HCl [Zantac] 75 mg PO BID 02/07/17 07/20/18 History Aspirin [[facility] Aspirin [facility]] 81 mg PO DAILY 07/20/18 07/20/18 History Allergies Allergy/AdvReac Type Severity Reaction Status Date / Time lisinopril AdvReac Cough Verified 07/20/18 10:49 Surgical - Exam Vital Signs Temp Pulse Resp BP Pulse Ox 98.3 F 106 H 16 149/81 96 07/20/18 07:14 07/20/18 07:14 07/20/18 07:14 07/20/18 07:14 07/20/18 07:14 Physical exam: General: Well-developed, well-nourished HEENT: Normocephalic, sclerae nonicteric Abdomen: Left mid abdominal tenderness, nondistended Extremities: No edema Neuro: Alert and oriented Results - Labs 07/20/18 07:45 07/20/18 07:45 Abnormal Lab Results - Last 24 Hours (Table) 07/20/18 07/20/18 07/20/18 Range/Units 07:29 07:45 07:45 WBC 16.4 H (3.8-10.6) k/uL Neutrophils # 12.5 H (1.3-7.7) k/uL Monocytes # 1.3 H (0-1.0) k/uL Chloride 108 H (98-107) mmol/L Glucose 125 H (74-99) mg/dL Total Bilirubin 1.4 H (0.2-1.3) mg/dL Urine Protein 1+ H (Negative) Amorphous Sediment Rare H (None) /hpf Urine Mucus Occasional H (None) /hpf Diabetes panel 07/20/18 Range/Units 07:45 Sodium 142 (137-145) mmol/L Potassium 4.0 (3.5-5.1) mmol/L Chloride 108 H (98-107) mmol/L Carbon Dioxide 24 (22-30) mmol/L BUN 16 (9-20) mg/dL Creatinine 0.97 (0.66-1.25) mg/dL Glucose 125 H (74-99) mg/dL Calcium 9.3 (8.4-10.2) mg/dL AST 26 (17-59) U/L ALT 49 (21-72) U/L Alkaline Phosphatase 54 (38-126) U/L Total Protein 6.6 (6.3-8.2) g/dL Albumin 3.8 (3.5-5.0) g/dL Calcium panel 07/20/18 Range/Units 07:45 Calcium 9.3 (8.4-10.2) mg/dL Albumin 3.8 (3.5-5.0) g/dL Pituitary panel 07/20/18 Range/Units 07:45 Sodium 142 (137-145) mmol/L Potassium 4.0 (3.5-5.1) mmol/L Chloride 108 H (98-107) mmol/L Carbon Dioxide 24 (22-30) mmol/L BUN 16 (9-20) mg/dL Creatinine 0.97 (0.66-1.25) mg/dL Glucose 125 H (74-99) mg/dL Calcium 9.3 (8.4-10.2) mg/dL Adrenal panel 07/20/18 Range/Units 07:45 Sodium 142 (137-145) mmol/L Potassium 4.0 (3.5-5.1) mmol/L Chloride 108 H (98-107) mmol/L Carbon Dioxide 24 (22-30) mmol/L BUN 16 (9-20) mg/dL Creatinine 0.97 (0.66-1.25) mg/dL Glucose 125 H (74-99) mg/dL Calcium 9.3 (8.4-10.2) mg/dL Total Bilirubin 1.4 H (0.2-1.3) mg/dL AST 26 (17-59) U/L ALT 49 (21-72) U/L Alkaline Phosphatase 54 (38-126) U/L Total Protein 6.6 (6.3-8.2) g/dL Albumin 3.8 (3.5-5.0) g/dL Assessment and Plan (1) Acute diverticulitis Narrative/Plan: CAT scan findings reviewed with the patient and his family. Patient has a mild- moderate case of diverticulitis involving the descending colon. Ice chips and popsicles only for now. Continue IV antibiotics. Repeat CBC tomorrow. Current Visit: Yes Status: Acute Code(s): K57.92 - DVTRCLI OF INTEST, PART UNSP, W/O PERF OR ABSCESS W/O BLEED SNOMED Code(s): 144426453
[2018-07-20 15:21] VITALS: BMI 34.2
[2018-07-20] MEDS: metroNIDAZOLE-NS PMX 500 MG in SALINE 1 100ML.BAG IVPB SCH ×2 (17:12→23:06)
[2018-07-20] MEDS: FAMOTIDINE 20 MG TAB PO SCH ×2 (17:12→20:15)
[2018-07-20] MEDS ORDERED: CALCIUM CARBONATE 500 MG CHEWABLE PO PRN (17:20)
[2018-07-20] MEDS ORDERED: MAGNESIUM HYDROXIDE 2,400 MG/10 ML CUP PO PRN (17:20)
[2018-07-20] MEDS ORDERED: ALPRAZolam 0.25 MG TAB PO PRN (17:20)
[2018-07-20] MEDS ORDERED: LACTULOSE 20 GM/30 ML CUP PO PRN (17:20)
[2018-07-20] MEDS ORDERED: MELATONIN 3 MG TABLET PO PRN (17:20)
[2018-07-20] MEDS: ACETAMINOPHEN TAB 325 MG TAB PO PRN (20:15)
[2018-07-20] MEDS: MONTELUKAST 10 MG TAB PO SCH (20:15)
[2018-07-20] MEDS: ENOXAPARIN 40 MG/0.4 ML SYRINGE SQ SCH (20:15)
[2018-07-20] MEDS: SYMBICORT 160-4.5 MCG INHALER INHALATION SCH (20:26)
--- NOTE | 2018-07-20 21:59 | HP ---
HISTORY AND PHYSICAL DATE OF ADMISSION: 07/20/2018 DATE OF SERVICE: 07/20/2018 PRESENTING COMPLAINT: Abdominal pain. 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 Chronic stable medical conditions include moderate persistent asthma, kidney stones, psoriasis, obesity. The patient has had a prior bout of diverticulitis with 8 inches of terminal colon removed by Dr. Manning about 8 years ago. Three days ago started up with dull ache in the left lower quadrant, has gradually progressed to become rather severe this morning. The patient having fever, chills, nausea, decided to present here. The patient did force himself to have a bowel movement on Friday, none since then. Did have a CT scan in the ER that showed acute diverticulitis on the left side. Admitted for the same. Started on IV Levaquin and Flagyl, IV fluids and made n.p.o. REVIEW OF SYSTEMS: CONSTITUTIONAL: Weak and tired. Fever and chills. HEENT: None. RESPIRATORY none. CARDIOVASCULAR: None. GASTROINTESTINAL: As above. GENITOURINARY: None. MUSCULOSKELETAL: None. DERMATOLOGICAL: None. HEMATOLOGICAL: None. LYMPHATICS: None. PSYCHIATRIC: None. PAST MEDICAL HISTORY: Diverticulitis with bowel resection, prostate adenocarcinoma with surgery, left ear melanoma surgery, skin cancer removed from face, renal calculus surgery, psoriasis, left hand finger numbness, right thigh and orthostatic hypotension. PAST SURGICAL HISTORY: 8 inches of distal bowel removed, prostate surgery, open radical prostatectomy, left ear melanoma removed, skin cancer removed from face, low anterior bowel resection, extracorporeal shock wave lithotripsy, renal calculi, bilateral kidney stone removed, bilateral inguinal hernia repair. SOCIAL HISTORY: . No smoking. Alcohol occasionally. Retired pharmacist. FAMILY HISTORY: Father of prostate cancer at age of 62. HOME MEDICATIONS: 1. Zantac 75 mg p.o. b.i.d. 2. Singulair 10 mg q.h.s. 3. Hydrochlorothiazide 12.5 p.o. daily. 4. Vitamin D3 2000 units p.o. daily. 5. Zyrtec 10 mg p.o. daily. 6. Symbicort 160/4.5 one puff b.i.d. 7. Aspirin 81 mg p.o. daily. ALLERGIES: LISINOPRIL PHYSICAL EXAMINATION: VITAL SIGNS: Vital signs on presentation, temperature 100, pulse 106, respirations 16, blood pressure 149/81, pulse ox 96% on room air. GENERAL APPEARANCE: Well built. BMI 34.2. Lying in bed, anxious-appearing. EYES: Pupils equal. Conjunctivae normal. HEENT: External appearance of nose and ears normal. Oral cavity normal. NECK: JVD not raised. Mass not palpable. RESPIRATORY: Effort normal. LUNGS are clear. CARDIOVASCULAR: 1st and 2nd sounds normal. No edema. ABDOMEN: Distended, soft, left lower quadrant tenderness. No guarding or rigidity. Liver and spleen not palpable. Bowel sounds are present. LYMPHATICS: No lymph nodes palpable in the neck and axilla. PSYCHIATRY: Alert and oriented x3. Mood and affect normal. NEUROLOGICAL: Pupils equal. Cranial nerves grossly intact. Power and sensation grossly intact. INVESTIGATIONS: White count 6.4, hemoglobin 15.4, potassium 4.0, BUN and creatinine normal. CT scan of the abdomen and pelvis shows left-sided diverticulitis. ASSESSMENT: 1. Acute diverticulitis, colonic, causing sepsis present on admission in a patient who has had prior 8 inches of the colon removed for the same. 2. Moderate persistent asthma, currently stable. 3. Obesity, BMI 34.2. 4. Psoriasis. PLAN: Patient has been made n.p.o., started on IV fluids, given IV antibiotics on Levaquin and Flagyl. Care was discussed with the patient. Questions were answered. General surgery Dr. Gates was consulted. Questions were answered. Copy to Dr. Sal Cerna. MILESL / RENE: [id number] /
[2018-07-20] MEDS: LACTATED RINGERS 1,000 ML IV SCH (23:06)
[2018-07-21] MEDS: metroNIDAZOLE-NS PMX 500 MG in SALINE 1 100ML.BAG IVPB SCH ×5 (05:01→23:56)
[2018-07-21] MEDS: ACETAMINOPHEN TAB 325 MG TAB PO PRN (05:02)
[2018-07-21] MEDS: LACTATED RINGERS 1,000 ML IV SCH ×3 (05:02→16:57)
[2018-07-21] MEDS: FAMOTIDINE 20 MG TAB PO SCH ×2 (08:12→20:31)
[2018-07-21] MEDS: ASPIRIN 81 MG PO SCH (08:12)
[2018-07-21] MEDS: ENOXAPARIN 40 MG/0.4 ML SYRINGE SQ SCH (08:12)
[2018-07-21 08:43] LABS: Basophils % (A) 0 %; Eosinophils # (A) 0.4 k/uL (0-0.7); Eosinophils % (A) 4 %; HCT 40.2 % (39.0-53.0); HGB 13.5 gm/dL (13.0-17.5); Lymphocytes # (A) 1.8 k/uL (1.0-4.8); Lymphocytes % (A) 15 %; MCH 29.5 pg (25.0-35.0); MCHC 33.6 g/dL (31.0-37.0); Mean Platelet Volume 7.2; Monocytes # (A) 0.9 k/uL (0-1.0); Monocytes % (A) 7 %; Neutrophils # (A) 8.7 k/uL (1.3-7.7); Neutrophils % (A) 72 %; Platelet Count 200 k/uL (150-450); RBC 4.57 m/uL (4.30-5.90); RDW 13.2 % (11.5-15.5); WBC 12.2 k/uL (3.8-10.6)
[2018-07-21] MEDS: SYMBICORT 160-4.5 MCG INHALER INHALATION SCH ×2 (08:49→20:59)
[2018-07-21 08:50] LABS: ALT 42 U/L (21-72); AST 19 U/L (17-59); Albumin 3.1 g/dL (3.5-5.0); Alkaline Phosphatase 43 U/L (38-126); Anion Gap 8 mmol/L; Blood Urea Nitrogen 15 mg/dL (9-20); Calcium 8.9 mg/dL (8.4-10.2); Carbon Dioxide 25 mmol/L (22-30); Chloride 108 mmol/L (98-107); Glucose 78 mg/dL (74-99); Potassium 4.1 mmol/L (3.5-5.1); Sodium 141 mmol/L (137-145); Total Protein 5.8 g/dL (6.3-8.2)
[2018-07-21] MEDS: LEVOFLOXACIN 750MG-D5W PMX 750 MG in DEXTROSE/WATER 1 150ML.BAG IVPB SCH (09:59)
--- NOTE | 2018-07-21 13:29 | P.PN ---
Subjective Progress Note Date: 07/21/18 Principal diagnosis: Diverticulitis Patient feels better today. He did feel feverish last night. T-max 100.1. White blood cell count today 12.2. He is hungry. He is passing flatus. No bowel movement. Objective - Vital Signs Vital signs: Vital Signs Temp 97.7 F 07/21/18 07:00 Pulse 80 07/21/18 07:00 Resp 18 07/21/18 08:30 BP 132/68 07/21/18 07:00 Pulse Ox 96 07/21/18 07:00 Intake & Output 07/20/18 07/21/18 07/21/18 18:59 06:59 18:59 Intake Total 1300 250 Balance 1300 250 Weight 102.058 kg Intake: Amount of Fluid Infused ( 1300 ml) Intake, IV Titration 250 Amount Lactated Ringers 1,000 ml 250 @ 125 mls/hr IV .Q8H [facility] Rx#:[id number] Other: # Voids 1 - Exam Abdomen: Soft, nondistended, mild left lower quadrant tenderness - Labs CBC & Chem 7: 07/21/18 07:48 07/21/18 07:48 Labs: Abnormal Lab Results - Last 24 Hours (Table) 07/21/18 07/21/18 Range/Units 07:48 07:48 WBC 12.2 H (3.8-10.6) k/uL Neutrophils # 8.7 H (1.3-7.7) k/uL Chloride 108 H (98-107) mmol/L Total Protein 5.8 L (6.3-8.2) g/dL Albumin 3.1 L (3.5-5.0) g/dL Microbiology - Last 24 Hours (Table) 07/20/18 07:40 Blood Culture - Preliminary Blood No Growth after 24 hours Assessment and Plan (1) Acute diverticulitis Narrative/Plan: Continue IV antibiotics. Recheck CBC tomorrow. Begin clear liquids. Current Visit: Yes Status: Acute Code(s): K57.92 - DVTRCLI OF INTEST, PART UNSP, W/O PERF OR ABSCESS W/O BLEED SNOMED Code(s): 290859145
[2018-07-21] MEDS: MONTELUKAST 10 MG TAB PO SCH (20:31)
--- NOTE | 2018-07-21 22:39 | PN ---
PROGRESS NOTE DATE OF SERVICE: 07/21/2018 PRESENTING COMPLAINT: Abdominal pain. INTERVAL HISTORY: This patient with prior diverticulitis with 18 inches of terminal colon removed 8 years ago, presented with another bout of acute diverticulitis. Feeling better today. Did tolerate ice chips earlier. No fever. No chills. Pain is much improved. REVIEW OF SYSTEMS: Done for constitutional, cardiovascular, GI, pulmonary and findings as above. CURRENT MEDICATIONS: Reviewed that include IV Levaquin and Flagyl. PHYSICAL EXAMINATION: T-max 100.1 last night, pulse 80 respiration 18, blood pressure 132/68, pulse 96% on room air. GENERAL APPEARANCE: Sitting up in a chair, feeling better. EYES: Pupils equal. Conjunctivae normal. NECK: JVD not raised. Mass not palpable. Respiratory effort normal. LUNGS: Clear. CARDIOVASCULAR: First and second sounds. No edema. ABDOMEN: Soft. Left lower quadrant decreased tenderness. No guarding or rigidity. PSYCHIATRY: Alert and oriented x3. Mood and affect normal. INVESTIGATIONS: White count 12.2 potassium 4.1. ASSESSMENT: 1. Acute left colonic diverticulitis causing sepsis present on admission with clinical response. 2. Moderate persistent asthma, currently stable. 3. Obesity, BMI 34.2. 4. Psoriasis. PLAN: Continue patient on IV antibiotics. Diet is being advanced to clear liquid diet by Dr. Gates. The patient is clinically responding. Lets see how he does in the next 24 hours. Care was discussed with her. MMODL / IJN: [id number] /
[2018-07-22] MEDS: LACTATED RINGERS 1,000 ML IV SCH (02:28)
[2018-07-22] MEDS: metroNIDAZOLE-NS PMX 500 MG in SALINE 1 100ML.BAG IVPB SCH (06:09)
[2018-07-22 08:07] VITALS: BP 149/91; PULSE 84; RESP 18; TEMP 98.2
[2018-07-22 08:17] LABS: Basophils % (A) 0 %; Eosinophils # (A) 0.3 k/uL (0-0.7); Eosinophils % (A) 3 %; HCT 43.2 % (39.0-53.0); HGB 14.6 gm/dL (13.0-17.5); Lymphocytes # (A) 1.2 k/uL (1.0-4.8); Lymphocytes % (A) 11 %; MCH 29.6 pg (25.0-35.0); MCHC 33.8 g/dL (31.0-37.0); MCV 87.7 fL (80.0-100.0); Mean Platelet Volume 7.1; Monocytes # (A) 0.6 k/uL (0-1.0); Monocytes % (A) 5 %; Neutrophils % (A) 80 %; Platelet Count 237 k/uL (150-450); RBC 4.93 m/uL (4.30-5.90); WBC 11.2 k/uL (3.8-10.6)
[2018-07-22 08:32] LABS: Anion Gap 9 mmol/L; Blood Urea Nitrogen 13 mg/dL (9-20); Calcium 9.1 mg/dL (8.4-10.2); Carbon Dioxide 24 mmol/L (22-30); Chloride 108 mmol/L (98-107); Glucose 95 mg/dL (74-99); Potassium 4.1 mmol/L (3.5-5.1); Sodium 141 mmol/L (137-145)
[2018-07-22] MEDS: LEVOFLOXACIN 750MG-D5W PMX 750 MG in DEXTROSE/WATER 1 150ML.BAG IVPB SCH (08:35)
[2018-07-22] MEDS: ENOXAPARIN 40 MG/0.4 ML SYRINGE SQ SCH (08:35)
[2018-07-22] MEDS: FAMOTIDINE 20 MG TAB PO SCH (08:35)
[2018-07-22] MEDS: ASPIRIN 81 MG PO SCH (08:35)
[2018-07-22] MEDS: SYMBICORT 160-4.5 MCG INHALER INHALATION SCH (08:41)
--- NOTE | 2018-07-22 12:28 | P.PN ---
Subjective Progress Note Date: 07/22/18 Principal diagnosis: Diverticulitis Patient doing well today. Minimal pain. White blood cell count 11. He is afebrile. He is tolerating diet. Good bowel function. Objective - Vital Signs Vital signs: Vital Signs Temp 98.2 F 07/22/18 07:00 Pulse 84 07/22/18 08:00 Resp 18 07/22/18 08:00 BP 149/91 07/22/18 07:00 Pulse Ox 95 07/22/18 07:00 Intake & Output 07/21/18 07/22/18 07/22/18 18:59 06:59 18:59 Intake Total 118 1475 Balance 118 1475 Intake: Intake, IV Titration 1475 Amount Lactated Ringers 1,000 ml 1375 @ 125 mls/hr IV .Q8H [facility] Rx#:[id number] metroNIDAZOLE-NS PMX 500 100 mg In Saline 1 100ml.bag @ 100 mls/hr IVPB Q6HR [facility] Rx#:[id number] Oral 118 Other: Voiding Method Toilet Toilet # Voids 2 - Exam Abdomen: Soft, nondistended, minimal left-sided tenderness - Labs CBC & Chem 7: 07/22/18 07:42 07/22/18 07:42 Labs: Abnormal Lab Results - Last 24 Hours (Table) 07/22/18 07/22/18 Range/Units 07:42 07:42 WBC 11.2 H (3.8-10.6) k/uL Neutrophils # 9.0 H (1.3-7.7) k/uL Chloride 108 H (98-107) mmol/L Microbiology - Last 24 Hours (Table) 07/20/18 07:40 Blood Culture - Preliminary Blood No Growth after 48 hours Assessment and Plan (1) Acute diverticulitis Narrative/Plan: Advance diet to low fiber. Continue antibiotics. Discharge likely today. Current Visit: Yes Status: Acute Code(s): K57.92 - DVTRCLI OF INTEST, PART UNSP, W/O PERF OR ABSCESS W/O BLEED SNOMED Code(s): 303726910
[2018-07-22] MEDS ORDERED: metroNIDAZOLE 500 MG TAB PO SCH (18:00)
--- NOTE | 2018-07-22 18:58 | P.DS ---
Providers Date of admission: 07/20/18 09:43 Attending physician: Tod Duke Consults: 07/20/18 09:43 Consult Physician Routine Consulting Provider: Eric Gates Consult Reason/Comments: Acute Diverticulitis Do you want consulting provider notified?: Yes Primary care physician: Sal Cerna Hospital Course: Discharge diagnoses: Acute colonic diverticulitis, with bowel thickening History of asthma, not active issue Obesity with BMI 34.2 History of psoriasis Hospital course: This is a pleasant 68 years old male who presents because of left lower quadrant abdominal pain of 2 days' duration, associated with some nausea but no vomiting. And had fever on admission of 100.6. He had CT of the abdomen which showing inflammatory changes involving the descending colon Suspicious for diverticulitis. Patient was treated on antibiotics and he was been evaluated by surgical team. Patient showed interval improvement and on the day of discharge he has very minimal pain like 1-2/10 in severity, tolerating diet well with no nausea vomiting. He has normal bowel movement as he was telling me. And patient was encouraged to be discharged home today and he did not want to wait till tomorrow.'s been evaluated by surgical team today and they cleared him for discharge. Patient had recent colonoscopy about 2 years ago however patient instructed to follow up with surgery and outpatient in 2-3 weeks for evaluation for possible repeat colonoscopy. Problems and management plan was discussed with the patient and he verbalized understanding and acceptance. Patient was found stable and can be discharged home however he needs follow-up as an outpatient. Patient agrees with the appointments made with his PCP and surgical team. Risk including but not limited to cancer is explained to the patient. Patient verbalized understanding i spoke with his pcp Dr. Cerna and updated him with the case and with recommendation to check his wbc and to refer to surgery as outpt for possible repeat colonoscopy in view of his diverticulitis physical exam Gen.: Patient alert awake and oriented X 3, NOT IN DISTRESS CVS: s1-s2, RRR, no murmur CHEST:bilateral CTA, no wheezing or crepitation Abdomen: Soft, no tenderness, no distention, positive bowel sounds Extremities: No leg edema or induration Time spent for the 35 minutes. Patient Condition at Discharge: Serious Plan - Discharge Summary Discharge Rx Participant: No New Discharge Prescriptions: New Acetaminophen Tab [Tylenol] 650 mg PO Q6HR PRN #20 tab PRN Reason: Mild Pain Or Fever > 100.5 Levofloxacin [Levaquin] 500 mg PO DAILY 5 Days #5 tab metroNIDAZOLE [Flagyl] 500 mg PO Q8HR 5 Days #15 tab Continue Cholecalciferol [Vitamin D3] 2,000 unit PO DAILY Hydrochlorothiazide 12.5 mg PO DAILY Cetirizine HCl [Zyrtec] 10 mg PO DAILY Ranitidine HCl [Zantac] 75 mg PO BID Montelukast [Singulair] 10 mg PO HS Aspirin [Bruning Aspirin EC] 81 mg PO DAILY Discontinued Budesonide/Formoterol Fumarate [Symbicort 160-4.5 Mcg Inhaler] 1 puff INHALATION RT-BID Discharge Medication List Cetirizine HCl [Zyrtec] 10 mg PO DAILY 06/30/16 [History] Cholecalciferol [Vitamin D3] 2,000 unit PO DAILY 06/30/16 [History] Hydrochlorothiazide 12.5 mg PO DAILY 06/30/16 [History] Montelukast [Singulair] 10 mg PO HS 02/07/17 [History] Ranitidine HCl [Zantac] 75 mg PO BID 02/07/17 [History] Aspirin [Bruning Aspirin EC] 81 mg PO DAILY 07/20/18 [History] Acetaminophen Tab [Tylenol] 650 mg PO Q6HR PRN #20 tab 07/22/18 [Rx] Levofloxacin [Levaquin] 500 mg PO DAILY 5 Days #5 tab 07/22/18 [Rx] metroNIDAZOLE [Flagyl] 500 mg PO Q8HR 5 Days #15 tab 07/22/18 [Rx] Follow up Appointment(s)/Referral(s): Eric Gates MD [Medical Doctor] - 08/06/18 8:45 am () Sal Cerna MD [Primary Care Provider] - 07/24/18 9:30 am Patient Instructions/Handouts: Diverticulitis (DC) Activity/Diet/Wound Care/Special Instructions: resume previous diet activity is limited till you see your doctor Discharge Disposition: HOME SELF-CARE
[2018-07-23] MEDS ORDERED: LEVOFLOXACIN 750 MG TAB PO SCH (09:00)
== END 2018-07-22 15:47 | disposition home or self-care (01) | DRG 872 ==
LOC: EC 07:10 → 3NMEDONC 09:43 → 4SSUR 14:04
PROVIDERS: ADMIT Hospitalist; ATTEND Hospitalist
DX: A41.9 Sepsis, unspecified organism (principal); K57.32 Diverticulitis of large intestine without perforation or abscess without bleeding; E66.9 Obesity, unspecified; J45.40 Moderate persistent asthma, uncomplicated; K59.00 Constipation, unspecified; L40.9 Psoriasis, unspecified; Z68.34 Body mass index [BMI] 34.0-34.9, adult; Z79.51 Long term (current) use of inhaled steroids; Z79.82 Long term (current) use of aspirin; Z79.899 Other long term (current) drug therapy; Z90.49 Acquired absence of other specified parts of digestive tract; Z87.442 Personal history of urinary calculi; Z85.820 Personal history of malignant melanoma of skin; Z85.46 Personal history of malignant neoplasm of prostate; Z83.3 Family history of diabetes mellitus; Z82.49 Family history of ischemic heart disease and other diseases of the circulatory system; Z80.42 Family history of malignant neoplasm of prostate
CPT/HCPCS: 36415; 74177; 80048; 80053; 81001; 82150; 83605; 83690; 85025; 87040; 94640; 96361; 96365; 96367; 96375; 96376; 99285

== ENCOUNTER → 2018-08-14 | Outpatient (CLI) | payer MEDICARE ==
[2018-08-14 16:24] LABS: Anion Gap 9.3 mmol/L (4.00-12.00); Calcium 9.3 mg/dL (8.7-10.3); Carbon Dioxide 26.7 mmol/L (21.6-31.8); Potassium 3.6 mmol/L (3.5-5.5)
== END | disposition home or self-care (01) ==
LOC: LABWHC1 07:23
PROVIDERS: ATTEND Internal Medicine Interventional Cardiology
DX: I10 Essential (primary) hypertension (principal)
CPT/HCPCS: 36415; 80048

== ENCOUNTER → 2018-10-26 | Outpatient (CLI) | payer MEDICARE | LOC: LABWHC1 07:02 | PROVIDERS: ATTEND Urology | DX: C61 Malignant neoplasm of prostate (principal) | CPT/HCPCS: 36415; 84153 ==

== ENCOUNTER 2019-03-22 06:07 | Emergency (ER) | payer MEDICARE ==
[2019-03-22 06:11] VITALS: BP 136/87; PULSE 76; RESP 18; TEMP 98.1
[2019-03-22] MEDS ORDERED: DICYCLOMINE 10 MG/ML 2 ML AMP IM STA (06:36)
[2019-03-22] MEDS ORDERED: ONDANSETRON 4 MG/2 ML VIAL IVP STA (06:36)
[2019-03-22] MEDS ORDERED: SODIUM CHLORIDE 0.9% 1,000 ML IV STA (06:37)
[2019-03-22] MEDS ORDERED: FAMOTIDINE 20 MG/2 ML VIAL IV STA (06:37)
--- NOTE | 2019-03-22 06:49 | ED ---
General Adult HPI - General Chief complaint: Nausea/Vomiting/Diarrhea Stated complaint: Diarrhea Time Seen by Provider: 03/22/19 06:16 Source: patient, RN notes reviewed Mode of arrival: ambulatory Limitations: no limitations - History of Present Illness Initial comments: 69-year-old male with a past medical history of diverticulitis, prostate cancer, orthostatic hypotension presents to the emergency department for a chief complaint of diarrhea. Patient states that last night he was burping more frequently. States that this morning around 2 AM he had an episode of diarrhea. States it was watery. Denies any abdominal pain. Does state that he feels like his bowels are moving freely. Since that time he is a 2 more episodes of diarrhea. States he started to become nauseous so presented to the emergency department. States she is concerned that if he started vomiting he could become dehydrated.Patient has no other complaints at this time including shortness of breath, chest pain, abdominal pain, nausea or vomiting, headache, or visual ch anges. - Related Data Home Medications Medication Instructions Recorded Confirmed Cetirizine HCl [Zyrtec] 10 mg PO DAILY 06/30/16 07/20/18 Cholecalciferol [Vitamin D3 (25 2,000 unit PO DAILY 06/30/16 07/20/18 Mcg = 1000 Iu)] Hydrochlorothiazide 12.5 mg PO DAILY 06/30/16 07/20/18 Montelukast [Singulair] 10 mg PO HS 02/07/17 07/20/18 Ranitidine HCl [Zantac] 75 mg PO BID 02/07/17 07/20/18 Aspirin [[place] Aspirin EC] 81 mg PO DAILY 07/20/18 07/20/18 Previous Rx's Medication Instructions Recorded Acetaminophen Tab [Tylenol] 650 mg PO Q6HR PRN #20 tab 07/22/18 Levofloxacin [Levaquin] 500 mg PO DAILY 5 Days #5 tab 07/22/18 metroNIDAZOLE [Flagyl] 500 mg PO Q8HR 5 Days #15 tab 07/22/18 Ondansetron [Zofran ODT] 4 mg PO Q8HR PRN #15 tab 03/22/19 Allergies Allergy/AdvReac Type Severity Reaction Status Date / Time lisinopril AdvReac Cough Verified 07/20/18 10:49 Review of Systems ROS Statement: Those systems with pertinent positive or pertinent negative responses have been documented in the HPI. ROS Other: All systems not noted in ROS Statement are negative. Past Medical History Past Medical History: Cancer Additional Past Medical History / Comment(s): Diverticulitis-had bowel resection, prostate adenocarcinoma with surgery, L ear melanoma with sx, skin cancer removed from face, renal calculi with sx, sinus problems, psoriasis, small airway obstruction, L hand finger numbness/R thigh numbness intermittent in the past, orthostatic hypotension. History of Any Multi-Drug Resistant Organisms: None Reported Past Surgical History: Bowel Resection, Hernia Repair, Prostate Surgery Additional Past Surgical History / Comment(s): Open radical prostatectomy, L ear melanoma removed, skin cancer removed from face, low anterior bowel resection, colonoscopy/benign polypectomy, extracorporeal shock wave lithrotripsy renal calculi, bilateral kidney stone removal, bilateral inguinal hernia repairs, L hydrocelectomy. Past Anesthesia/Blood Transfusion Reactions: No Reported Reaction Additional Past Anesthesia/Blood Transfusion Reaction / Comment(s): Pt has never recieved blood. Past Psychological History: No Psychological Hx Reported Smoking Status: Never smoker - Past Family History Father Family Medical History: Cancer Additional Family Medical History / Comment(s): Father of prostate cancer at the age of 62yrs. Mother Family Medical History: Myocardial Infarction ([place]) Additional Family Medical History / Comment(s): Mother had a AL in her 70's. Brother(s) Family Medical History: Diabetes Mellitus, Liver Disease, Myocardial Infarction ([place]) Additional Family Medical History / Comment(s): Brother of a AL in his upper 60's. He also had hepatitis and diabetes. General Exam Limitations: no limitations General appearance: alert, in no apparent distress Head exam: Present: atraumatic, normocephalic, normal inspection Eye exam: Present: normal appearance, PERRL, EOMI. Absent: scleral icterus, conjunctival injection, periorbital swelling ENT exam: Present: normal exam, mucous membranes moist Neck exam: Present: normal inspection, full ROM. Absent: tenderness, meningismus, lymphadenopathy Respiratory exam: Present: normal lung sounds bilaterally. Absent: respiratory distress, wheezes, rales, rhonchi, stridor Cardiovascular Exam: Present: regular rate, normal rhythm, normal heart sounds. Absent: systolic murmur, diastolic murmur, rubs, gallop, clicks GI/Abdominal exam: Present: soft, normal bowel sounds. Absent: distended, tenderness (No abdominal tenderness noted), guarding, rebound, rigid Neurological exam: Present: alert Psychiatric exam: Present: normal affect, normal mood Course Vital Signs 03/22/19 06:09 Temperature 98.1 F Pulse Rate 76 Respiratory 18 Rate Blood Pressure 136/87 O2 Sat by Pulse 98 Oximetry Medical Decision Making - Medical Decision Making 61-year-old male with a past medical history of diverticulitis with bowel resection, prostate cancer, orthostatic hypotension presents for diarrhea. ates that this started around 2 AM and has had 3 episodes since that time. States he started to feel nauseous and was concerned he may get dehydrated if he began vomiting. Patient is denying any abdominal pain whatsoever at this time. Denies any fevers or chills. On presentation vitals are stable. Patient is afebrile. Exam is unremarkable, abdomen is soft and nontender. CBC does reveal mild leukocytosis of 16.8 likely related to gastroenteritis. CMP is unremarkable, mild dehydration as evident with a BUN to creatinine ratio of 22. Patient given a liter of fluids. Abdomen reevaluated, continues to be nontender. No evidence for diverticulitis at this time. Nausea is better after antiemetics. At this time patient will be discharged home with likely a viral gastroenteritis. However recommended strict return precautions including fever or abdominal pain and at that time patient is aware he may need a CAT scan. Zofran will be sent to pharmacy. Patient requesting discharge as he has an appointment with orthopedics. - Lab Data Result diagrams: 03/22/19 06:47 03/22/19 06:47 Lab Results 03/22/19 03/22/19 Range/Units 06:47 06:47 WBC 16.8 H (3.8-10.6) k/uL RBC 5.68 (4.30-5.90) m/uL Hgb 16.2 (13.0-17.5) gm/dL Hct 49.3 (39.0-53.0) % MCV 86.8 (80.0-100.0) fL MCH 28.5 (25.0-35.0) pg MCHC 32.9 (31.0-37.0) g/dL RDW 13.6 (11.5-15.5) % Plt Count 271 (150-450) k/uL Neutrophils % 81 % Lymphocytes % 10 % Monocytes % 6 % Eosinophils % 2 % Basophils % 0 % Neutrophils # 13.6 H (1.3-7.7) k/uL Lymphocytes # 1.7 (1.0-4.8) k/uL Monocytes # 1.0 (0-1.0) k/uL Eosinophils # 0.3 (0-0.7) k/uL Basophils # 0.0 (0-0.2) k/uL Sodium 142 (137-145) mmol/L Potassium 4.0 (3.5-5.1) mmol/L Chloride 107 (98-107) mmol/L Carbon Dioxide 23 (22-30) mmol/L Anion Gap 12 mmol/L BUN 22 H (9-20) mg/dL Creatinine 0.99 (0.66-1.25) mg/dL Est GFR (CKD-EPI)AfAm >90 (>60 ml/min/1.73 sqM) Est GFR (CKD-EPI)NonAf 78 (>60 ml/min/1.73 sqM) Glucose 119 H (74-99) mg/dL Calcium 9.8 (8.4-10.2) mg/dL Total Bilirubin 0.8 (0.2-1.3) mg/dL AST 40 (17-59) U/L ALT 64 (21-72) U/L Alkaline Phosphatase 60 (38-126) U/L Total Protein 7.5 (6.3-8.2) g/dL Albumin 4.4 (3.5-5.0) g/dL Amylase 63 (30-110) U/L Lipase 198 (23-300) U/L Disposition Clinical Impression: Diarrhea Disposition: HOME SELF-CARE Condition: Good Instructions (If sedation given, give patient instructions): Acute Diarrhea (ED) Additional Instructions: Please take Zofran as needed. Please follow-up with primary care in 1-2 days. If you have any worsening symptoms such as worsening diarrhea, abdominal pain, f karol return immediately to the emergency department. Prescriptions: Ondansetron [Zofran ODT] 4 mg PO Q8HR PRN #15 tab PRN Reason: Nausea Is patient prescribed a controlled substance at d/c from ED?: No Referrals: Sal Cerna MD [Primary Care Provider] - 1-2 days Time of Disposition: 07:43
[2019-03-22 07:11] LABS: Basophils % (A) 0 %; Eosinophils # (A) 0.3 k/uL (0-0.7); Eosinophils % (A) 2 %; HCT 49.3 % (39.0-53.0); HGB 16.2 gm/dL (13.0-17.5); Lymphocytes # (A) 1.7 k/uL (1.0-4.8); Lymphocytes % (A) 10 %; MCH 28.5 pg (25.0-35.0); MCHC 32.9 g/dL (31.0-37.0); MCV 86.8 fL (80.0-100.0); Monocytes % (A) 6 %; Neutrophils # (A) 13.6 k/uL (1.3-7.7); Neutrophils % (A) 81 %; Platelet Count 271 k/uL (150-450); RBC 5.68 m/uL (4.30-5.90); RDW 13.6 % (11.5-15.5); WBC 16.8 k/uL (3.8-10.6)
[2019-03-22 07:32] LABS: ALT 64 U/L (21-72); AST 40 U/L (17-59); African American GFR (CKD) >90 (>60 ml/min/1.73 sqM); Albumin 4.4 g/dL (3.5-5.0); Alkaline Phosphatase 60 U/L (38-126); Amylase 63 U/L (30-110); Anion Gap 12 mmol/L; Blood Urea Nitrogen 22 mg/dL (9-20); Calcium 9.8 mg/dL (8.4-10.2); Carbon Dioxide 23 mmol/L (22-30); Chloride 107 mmol/L (98-107); Glucose 119 mg/dL (74-99); Sodium 142 mmol/L (137-145); Total Bilirubin 0.8 mg/dL (0.2-1.3); Total Protein 7.5 g/dL (6.3-8.2)
== END 2019-03-22 07:56 | disposition home or self-care (01) ==
LOC: EC 06:07
DX: R19.7 Diarrhea, unspecified (principal); D72.829 Elevated white blood cell count, unspecified; E86.0 Dehydration; R11.0 Nausea; Z88.8 Allergy status to other drugs, medicaments and biological substances; Z79.82 Long term (current) use of aspirin; Z79.899 Other long term (current) drug therapy; Z85.46 Personal history of malignant neoplasm of prostate; Z85.820 Personal history of malignant melanoma of skin; Z87.19 Personal history of other diseases of the digestive system; Z90.49 Acquired absence of other specified parts of digestive tract; Z90.79 Acquired absence of other genital organ(s); Z98.890 Other specified postprocedural states; Z83.79 Family history of other diseases of the digestive system
CPT/HCPCS: 36415; 80053; 82150; 83690; 85025; 99284; 96374; 96375; 96361; 96372; J0500; J2405

== ENCOUNTER 2019-04-22 09:17 | Emergency (ER) | payer MEDICARE ==
[2019-04-22] MEDS ORDERED: FAMOTIDINE 20 MG/2 ML VIAL IV STA (09:24)
[2019-04-22] MEDS ORDERED: ONDANSETRON 4 MG/2 ML VIAL IVP STA (09:24)
[2019-04-22] MEDS ORDERED: IPRATROPIUM-ALBUTEROL 3 ML NEB INHALATION STA (09:24)
[2019-04-22 09:45] VITALS: PULSE 102
--- NOTE | 2019-04-22 11:26 | ED ---
Skin/Abscess/FB HPI - General Chief complaint: Skin/Abscess/Foreign Body Stated complaint: BEE STINGS Time Seen by Provider: 04/22/19 09:17 Source: patient, RN notes reviewed Mode of arrival: ambulatory Limitations: no limitations - History of Present Illness Initial comments: This is a 69-year-old male with no prior history of bee sting ALLERGY who states he was stung by multiple bees over his back and anterior torso R to arrival. He was seen at an outpatient clinic where he received steroids as well as Benadryl and epinephrine shots. The time he arrived here he still is somewhat better but still very shaky he did have some difficulty with breathing as he does have asthma no overt chest pain he did has some nausea. No other modifying factors at this time MD complaint: insect bite/sting - Related Data Home Medications Medication Instructions Recorded Confirmed Cholecalciferol [Vitamin D3 (25 2,000 unit PO DAILY 06/30/16 04/22/19 Mcg = 1000 Iu)] Montelukast [Singulair] 10 mg PO HS 02/07/17 04/22/19 Budesonide-Formot 160-4.5 Mcg 2 puff INHALATION RT-BID 04/22/19 04/22/19 [Symbicort 160-4.5 Mcg Inhaler] Famotidine [Pepcid AC] 10 mg PO BID 04/22/19 04/22/19 Hydrochlorothiazide [Hydrodiuril] 25 mg PO DAILY 04/22/19 04/22/19 Previous Rx's Medication Instructions Recorded EPINEPHrine (Auto Inject) [Epipen] 0.3 mg IM ONCE PRN #2 pen 04/22/19 methylPREDNISolone Dose Pack 4 mg PO DIRECTED #21 package 04/22/19 [Medrol Dose Pack] Allergies Allergy/AdvReac Type Severity Reaction Status Date / Time lisinopril AdvReac Cough Verified 04/22/19 09:59 Review of Systems ROS Statement: Those systems with pertinent positive or pertinent negative responses have been documented in the HPI. ROS Other: All systems not noted in ROS Statement are negative. Past Medical History Past Medical History: Cancer Additional Past Medical History / Comment(s): Diverticulitis-had bowel resection, prostate adenocarcinoma with surgery, L ear melanoma with sx, skin cancer removed from face, renal calculi with sx, sinus problems, psoriasis, small airway obstruction, L hand finger numbness/R thigh numbness intermittent in the past, orthostatic hypotension. History of Any Multi-Drug Resistant Organisms: None Reported Past Surgical History: Bowel Resection, Hernia Repair, Prostate Surgery Additional Past Surgical History / Comment(s): Open radical prostatectomy, L ear melanoma removed, skin cancer removed from face, low anterior bowel resection, colonoscopy/benign polypectomy, extracorporeal shock wave lithrotripsy renal calculi, bilateral kidney stone removal, bilateral inguinal hernia repairs, L hydrocelectomy. Past Anesthesia/Blood Transfusion Reactions: No Reported Reaction Additional Past Anesthesia/Blood Transfusion Reaction / Comment(s): Pt has never recieved blood. Past Psychological History: No Psychological Hx Reported Smoking Status: Never smoker Past Alcohol Use History: Rare Past Drug Use History: None Reported - Past Family History Father Family Medical History: Cancer Additional Family Medical History / Comment(s): Father of prostate cancer at the age of 62yrs. Mother Family Medical History: Myocardial Infarction ([place]) Additional Family Medical History / Comment(s): Mother had a MO in her 70's. Brother(s) Family Medical History: Diabetes Mellitus, Liver Disease, Myocardial Infarction ([place]) Additional Family Medical History / Comment(s): Brother of a MO in his upper 60's. He also had hepatitis and diabetes. General Exam - General Exam Comments Initial Comments: This is a well-developed well-nourished awake alert anxious appearing male who is in some distress Limitations: no limitations General appearance: alert, anxious, in distress Head exam: Present: atraumatic, normocephalic, normal inspection Eye exam: Present: normal appearance, PERRL, EOMI. Absent: scleral icterus, conjunctival injection, periorbital swelling ENT exam: Present: normal exam, mucous membranes moist, other (Oropharynx demonstrates no overt evidence of edema there is some mild hyperemia however.) Neck exam: Present: normal inspection, full ROM, other (No stridor JVD or bruits). Absent: tenderness, meningismus, lymphadenopathy Respiratory exam: Present: decreased breath sounds. Absent: respiratory distress, wheezes, rales, rhonchi, stridor Cardiovascular Exam: Present: normal rhythm, tachycardia, normal heart sounds. Absent: systolic murmur, diastolic murmur, rubs, gallop, clicks GI/Abdominal exam: Present: soft, normal bowel sounds. Absent: distended, tenderness, guarding, rebound, rigid Extremities exam: Present: normal inspection, full ROM, normal capillary refill. Absent: tenderness, pedal edema, joint swelling, calf tenderness Back exam: Present: full ROM, rash noted. Absent: tenderness Neurological exam: Present: alert, oriented X3, CN II-XII intact, other (Patient was noted have some tremor this is likely secondary to the epinephrine treatment) Psychiatric exam: Present: normal affect, anxious Skin exam: Present: warm, dry, intact, erythema (Erythema with multiple punctate areas consistent with bee stings. No formed by seen. This is over the upper abdomen chest and back.). Absent: rash Course Vital Signs 04/22/19 04/22/19 04/22/19 09:24 09:36 09:44 Temperature 98.2 F Pulse Rate 105 H 107 H 102 H Respiratory 18 Rate O2 Sat by Pulse 94 L Oximetry 04/22/19 09:56 Temperature Pulse Rate Respiratory 22 Rate O2 Sat by Pulse Oximetry - Reevaluation(s) Reevaluation #1: 04/22/19 11:22 I did review the [place] patient several occasions he was getting improvement over time and with medication. He was breathing easier after the nebulizer treatment. Medical Decision Making - Medical Decision Making Patient was markedly improved on reexamination. He feels he is rated ago. Patient has no difficulty breathing no trouble swallowing his rash has improved. He will be discharged he will receive a prescription for an EpiPen. Ty takes Pepcid daily he was cautioned about heat exposure. He will also get a steroid prescription. Disposition Clinical Impression: Allergic reaction to bee sting, Acute bronchospasm Disposition: HOME SELF-CARE Condition: Good Instructions (If sedation given, give patient instructions): Bronchospasm (ED), Insect Bite or Sting (ED) Additional Instructions: Prescription is sent to your [facility] pharmacy of choice Prescriptions: EPINEPHrine (Auto Inject) [Epipen] 0.3 mg IM ONCE PRN #2 pen PRN Reason: Anaphylaxis methylPREDNISolone Dose Pack [Medrol Dose Pack] 4 mg PO DIRECTED #21 package Is patient prescribed a controlled substance at d/c from ED?: No Referrals: Sal Cerna MD [Primary Care Provider] - 1-2 days
[2019-04-22 11:44] VITALS: BP 163/79; RESP 18; TEMP 98
== END 2019-04-22 11:44 | disposition home or self-care (01) ==
LOC: EC 09:17
DX: T63.441A Toxic effect of venom of bees, accidental (unintentional), initial encounter (principal); J98.01 Acute bronchospasm; L40.9 Psoriasis, unspecified; Z79.51 Long term (current) use of inhaled steroids; Z79.899 Other long term (current) drug therapy; Z88.8 Allergy status to other drugs, medicaments and biological substances; Z85.820 Personal history of malignant melanoma of skin; Z85.46 Personal history of malignant neoplasm of prostate; Z98.890 Other specified postprocedural states
CPT/HCPCS: 94640; 99284; 96374; 96375; J2405

== ENCOUNTER → 2019-08-17 | Outpatient (CLI) | payer MEDICARE ==
--- NOTE | 2019-08-17 07:47 | US ---
EXAMINATION TYPE: US abdomen complete DATE OF EXAM: 08/17/2019 COMPARISON: CT abdomen and pelvis July 20, 2018 CLINICAL HISTORY: R74.8 Elevated Liver enzymes. Elevated liver enzymes EXAM MEASUREMENTS: Liver Length: 15.2 cm Gallbladder Wall: 0.3 cm CBD: 0.3 cm Spleen: 10.0 cm Right Kidney: 10.7 x 5.2 x 4.6 cm Left Kidney: 11.1 x 5.6 x 4.3 cm Technical limitations due to large amount of overlying bowel content Pancreas: Obscured by bowel gas Liver: attenuating Gallbladder: stones noted Evidence for sonographic Merida's sign: no CBD: limited evaluation Spleen: accessory spleen = 1.6cm Right Kidney: no evidence of hydronephrosis Left Kidney: stones noted, largest = 0.7cm Upper IVC: limited evaluation Abd Aorta: proximal obscured, calcifications noted within visualized portions The visualized portion of the liver is heterogeneously hyperechoic. Evaluation for focal masses subop timal due to the heterogeneity. Findings basis of diffuse fatty infiltration when correlating with CT . The intrahepatic portion of the IVC and visualized mid and distal abdominal aorta are within normal limits. Gallbladder is identified with some hyperechoic true luminal foci presumed mobile gallstones . No pericholecystic fluid or abnormal gallbladder wall thickening. Visualized portion of Common beto e duct is unremarkable. Pancreas suboptimally seen on images saved due to shadowing from overlying vimal wel gas.. Small splenule seen in splenic hilum measuring 1.6cm. Kidneys are symmetric and free of hy dronephrosis. Some cortical thinning on the right is thought present. Hyperechoic foci left kidney murphy spicious for nonobstructing calculi which correlates with CT. IMPRESSION: Diffuse fatty infiltration of liver redemonstrated. No new biliary dilatation noted.
== END ==
LOC: RADUSWWP 06:51
PROVIDERS: ATTEND Internal Medicine
DX: K76.0 Fatty (change of) liver, not elsewhere classified (principal)
CPT/HCPCS: 76700

== ENCOUNTER → 2020-03-08 | Outpatient (CLI) | payer MEDICARE ==
--- NOTE | 2020-03-08 15:44 | XR ---
EXAMINATION TYPE: XR abdomen 1V DATE OF EXAM: 03/08/2020 11:54 AM CLINICAL HISTORY: Right kidney stone TECHNIQUE: Supine image of the abdomen and pelvis were obtained COMPARISON: KUB 06/30/2016. CT abdomen pelvis 07/20/2018. FINDINGS: Nonspecific bowel gas pattern. Overlying the left renal shadow, there is a 4 mm calcificati on over the upper pole, punctate calcifications over the interpolar kidney, and 3 mm calcification ov er the lower pole. Overlying the right renal shadow is a 5 mm calcification over the interpolar kidne y and 2 mm calcification over the lower pole. Pelvic surgical clips. Degenerative changes of the spin e. IMPRESSION: 1. Multiple renal calculi, likely bilaterally, largest measuring up to 5 mm over the right renal shad ow and 4 mm over the left renal shadow. 2. Nonspecific bowel gas pattern.
== END | disposition home or self-care (01) ==
LOC: RADXRMAIN 11:33
PROVIDERS: ATTEND Urology
DX: N20.0 Calculus of kidney (principal)
CPT/HCPCS: 74018

== ENCOUNTER → 2021-02-27 | Outpatient (CLI) | payer MEDICARE | END | disposition home or self-care (01) | LOC: LABWHC1 08:57 | PROVIDERS: ATTEND Urology | DX: C61 Malignant neoplasm of prostate (principal) | CPT/HCPCS: 36415; 84153 ==

== ENCOUNTER 2021-04-26 12:17 | Emergency (ER) | payer MEDICARE ==
[2021-04-26 12:21] VITALS: TEMP 97.5
[2021-04-26] MEDS ORDERED: SODIUM CHLORIDE 0.9% 1,000 ML IV STA (13:06)
[2021-04-26] MEDS ORDERED: MORPHINE SULFATE 4 MG/ML SYRINGE IV STA (13:06)
[2021-04-26] MEDS ORDERED: ONDANSETRON 4 MG/2 ML VIAL IVP STA ×2 (13:06→14:56)
[2021-04-26 14:14] LABS: Basophils # (A) 0.1 k/uL (0-0.2); Basophils % (A) 0 %; Eosinophils # (A) 0.3 k/uL (0-0.7); Eosinophils % (A) 2 %; HCT 48.1 % (39.0-53.0); HGB 16.2 gm/dL (13.0-17.5); Lymphocytes # (A) 2.6 k/uL (1.0-4.8); Lymphocytes % (A) 19 %; MCH 30.5 pg (25.0-35.0); MCHC 33.6 g/dL (31.0-37.0); MCV 90.7 fL (80.0-100.0); Mean Platelet Volume 8.4; Monocytes % (A) 7 %; Neutrophils # (A) 9.9 k/uL (1.3-7.7); Neutrophils % (A) 70 %; Platelet Count 256 k/uL (150-450); RBC 5.31 m/uL (4.30-5.90); RDW 13.1 % (11.5-15.5); WBC 14.2 k/uL (3.8-10.6)
[2021-04-26 14:24] LABS: ALT 49 U/L (4-49); AST 42 U/L (17-59); African American GFR (CKD) >90 (>60 ml/min/1.73 sqM); Albumin 4.2 g/dL (3.5-5.0); Alkaline Phosphatase 50 U/L (38-126); Amylase 60 U/L (30-110); Anion Gap 10 mmol/L; Blood Urea Nitrogen 19 mg/dL (9-20); Calcium 9.7 mg/dL (8.4-10.2); Carbon Dioxide 26 mmol/L (22-30); Chloride 103 mmol/L (98-107); Glucose 171 mg/dL (74-99); Lipase 194 U/L (23-300); Non-African American GFR(CKD) >90 (>60 ml/min/1.73 sqM); Sodium 139 mmol/L (137-145); Total Bilirubin 0.7 mg/dL (0.2-1.3); Total Protein 7.2 g/dL (6.3-8.2)
[2021-04-26 14:46] VITALS: PULSE 67; RESP 20
--- NOTE | 2021-04-26 15:15 | ED ---
Fall HPI - General Source: patient, RN notes reviewed Mode of arrival: wheelchair <Srini Mao - Last Filed: 04/26/21 15:08> <Kayley Ferris - Last Filed: 04/30/21 00:39> - General Chief Complaint: Fall Stated Complaint: Fall/Vomiting/High BP Time Seen by Provider: 04/26/21 13:03 - History of Present Illness Initial Comments: A she is 8-year-old male that presents emergency department complaining of several falls this morning. He notes that he is nauseous, diaphoretic and not feeling well. notes that they are fully vaccinated and back on the blister. She denies any cardiac history other than her right bundle branch block. She denies any neuro history. He was otherwise well-appearing. He noted that he does not feel at this time he denied any aggravating or alleviating factors. He notes that he thinks her this morning. He denied any chest pain shortness of breath headache diarrhea constipation fever fatigue chills. (Srini Mao) Patient signed out to me from Srini. I did evaluate the patient myself. I walk into the room to find the patient dry heaving. He states the room is spinning. He bent forward this morning, lost his balance and fell forward. Denies hitting his head or losing consciousness. No headache. Does admit to room spinning sensation at this time. He admits that he has had cough with productive sputum. Son was sick with bacterial pneumonia 2 weeks ago. She also reports to some confusion with hallucinations this past weekend. states that her was having hallucinations that she was outside when she was in the house. No history of similar in the past. Denies any fevers or chills. No recent medication changes. No numbness, tingling or weakness in his body. No chest pain. Does admit to shortness of breath. No alleviating, precipitating or modifying factors (Kayley Ferris) - Related Data Home Medications Medication Instructions Recorded Confirmed Cholecalciferol [Vitamin D3 (25 50 mcg PO DAILY 06/30/16 04/26/21 Mcg = 1000 Iu)] Montelukast [Singulair] 10 mg PO HS 02/07/17 04/26/21 Budesonide-Formot 160-4.5 Mcg 2 puff INHALATION RT-BID 04/22/19 04/26/21 [Symbicort 160-4.5 Mcg Inhaler] hydroCHLOROthiazide [Hydrodiuril] 25 mg PO DAILY 04/22/19 04/26/21 Albuterol Sulfate [Ventolin HFA] 2 puff INHALATION RT-QID 04/26/21 04/26/21 Cetirizine HCl 10 mg PO DAILY 04/26/21 04/26/21 Esomeprazole Magnesium [NexIUM 20 mg PO DAILY 04/26/21 04/26/21 24Hr] Metoprolol Tartrate [Lopressor] 25 mg PO BID 04/26/21 04/26/21 guaiFENesin [Mucinex] 600 - 1,200 mg PO Q12H 04/26/21 04/26/21 predniSONE 4 mg PO DAILY 04/26/21 04/26/21 Previous Rx's Medication Instructions Recorded Meclizine [Antivert] 25 mg PO TID PRN #25 tab 04/26/21 Metoclopramide [Reglan] 10 mg PO TID PRN #15 tab 04/26/21 Allergies Allergy/AdvReac Type Severity Reaction Status Date / Time lisinopril AdvReac Cough Verified 04/26/21 15:28 Review of Systems ROS Other: All systems not noted in ROS Statement are negative. <Srini Mao - Last Filed: 04/26/21 15:08> ROS Other: All systems not noted in ROS Statement are negative. <Kayley Ferris - Last Filed: 04/30/21 00:39> ROS Statement: Those systems with pertinent positive or pertinent negative responses have been documented in the HPI. Past Medical History Past Medical History: Cancer Additional Past Medical History / Comment(s): Diverticulitis-had bowel resection, prostate adenocarcinoma with surgery, L ear melanoma with sx, skin cancer removed from face, renal calculi with sx, sinus problems, psoriasis, small airway obstruction, L hand finger numbness/R thigh numbness intermittent in the past, orthostatic hypotension. History of Any Multi-Drug Resistant Organisms: None Reported Past Surgical History: Bowel Resection, Hernia Repair, Prostate Surgery Additional Past Surgical History / Comment(s): Open radical prostatectomy, L ear melanoma removed, skin cancer removed from face, low anterior bowel resection, colonoscopy/benign polypectomy, extracorporeal shock wave lithrotripsy renal calculi, bilateral kidney stone removal, bilateral inguinal hernia repairs, L hydrocelectomy. Past Anesthesia/Blood Transfusion Reactions: No Reported Reaction Additional Past Anesthesia/Blood Transfusion Reaction / Comment(s): Pt has never recieved blood. Past Psychological History: No Psychological Hx Reported Smoking Status: Never smoker Past Alcohol Use History: Rare Past Drug Use History: None Reported - Past Family History Father Family Medical History: Cancer Additional Family Medical History / Comment(s): Father of prostate cancer at the age of 62yrs. Mother Family Medical History: Myocardial Infarction (NH) Additional Family Medical History / Comment(s): Mother had a NH in her 70's. Brother(s) Family Medical History: Diabetes Mellitus, Liver Disease, Myocardial Infarction (NH) Additional Family Medical History / Comment(s): Brother of a NH in his upper 60's. He also had hepatitis and diabetes. <Srini Mao - Last Filed: 04/26/21 15:08> General Exam Limitations: no limitations General appearance: alert, in no apparent distress, other (Diaphoretic) Eye exam: Present: normal appearance, PERRL, EOMI. Absent: scleral icterus, conjunctival injection, periorbital swelling ENT exam: Present: normal exam, mucous membranes moist Neck exam: Present: normal inspection Respiratory exam: Present: normal lung sounds bilaterally. Absent: respiratory distress, wheezes, rales, rhonchi, stridor Cardiovascular Exam: Present: regular rate, normal rhythm, normal heart sounds. Absent: systolic murmur, diastolic murmur, rubs, gallop, clicks GI/Abdominal exam: Present: soft, normal bowel sounds. Absent: distended, tenderness, guarding, rebound, rigid Extremities exam: Present: normal inspection, full ROM, normal capillary refill. Absent: tenderness, pedal edema, joint swelling, calf tenderness Neurological exam: Present: alert, oriented X3 Psychiatric exam: Present: normal affect, normal mood Skin exam: Present: warm, dry, intact, normal color. Absent: rash <Srini Mao - Last Filed: 04/26/21 15:08> Course Vital Signs 04/26/21 04/26/21 04/26/21 12:19 14:39 16:54 Temperature 97.5 F L Pulse Rate 75 67 67 Respiratory 18 20 20 Rate Blood Pressure 163/84 138/75 136/67 O2 Sat by Pulse 88 L 94 L Oximetry Medical Decision Making - Lab Data Result diagrams: 04/26/21 13:23 04/26/21 13:23 - EKG Data -: EKG Interpreted by Me EKG shows normal: sinus rhythm Rate: normal <Srini Mao - Last Filed: 04/26/21 15:08> - Lab Data Result diagrams: 04/26/21 13:23 04/26/21 13:23 <Kayley Ferris - Last Filed: 04/30/21 00:39> - Medical Decision Making 71-year-old male with several falls this morning complaining of weakness nausea and not feeling well. labs, 1 L normal saline, 4 mg Zofran, EKG, monitor technician Labs: White blood cells 14.2 lactic 2.2 Crohn's test negative. Troponin negative. (Srini Mao) I did review the patient's laboratory studies. Lactic acid 2.2. White count 14.2. Covid negative. He does go over for his chest x-ray which demonstrates prominent vasculature. Patient's saturations are 98% without any supplemental oxygen. No signs of respiratory distress. KUB demonstrates few small left renal conjoin measuring 4 mm. No evidence of free air or obstruction. Mild stool Birden. CT of the brain demonstrates no acute abnormality with atrophic and chronic small vessel ischemia CT angiography demonstrates no significant abnormality. The results are discussed the patient. Due to the report of confusion, hallucinations I did recommend admission. Patient is alert and oriented at this time with his at bedside. They both request that the patient be discharged he follow-up in the outpatient setting with a neurologist. He states that after the meclizine and Reglan that his symptoms are completely resolved and he no longer feels dizzy. Patient states he feels "100%" at this time. The patient will be discharged home with prescriptions for Reglan and meclizine. He needs to follow-up with neurology. Recommend they return for any new or worsening symptoms. Patient agreed and treatment is discharged home in stable condition (Kayley Ferris) - Lab Data Lab Results 04/26/21 04/26/21 04/26/21 Range/Units 13:23 13:23 13:23 WBC 14.2 H (3.8-10.6) k/uL RBC 5.31 (4.30-5.90) m/uL Hgb 16.2 (13.0-17.5) gm/dL Hct 48.1 (39.0-53.0) % MCV 90.7 (80.0-100.0) fL MCH 30.5 (25.0-35.0) pg MCHC 33.6 (31.0-37.0) g/dL RDW 13.1 (11.5-15.5) % Plt Count 256 (150-450) k/uL MPV 8.4 Neutrophils % 70 % Lymphocytes % 19 % Monocytes % 7 % Eosinophils % 2 % Basophils % 0 % Neutrophils # 9.9 H (1.3-7.7) k/uL Lymphocytes # 2.6 (1.0-4.8) k/uL Monocytes # 1.0 (0-1.0) k/uL Eosinophils # 0.3 (0-0.7) k/uL Basophils # 0.1 (0-0.2) k/uL Sodium 139 (137-145) mmol/L Potassium 4.0 (3.5-5.1) mmol/L Chloride 103 (98-107) mmol/L Carbon Dioxide 26 (22-30) mmol/L Anion Gap 10 mmol/L BUN 19 (9-20) mg/dL Creatinine 0.81 (0.66-1.25) mg/dL Est GFR (CKD-EPI)AfAm >90 (>60 ml/min/1.73 sqM) Est GFR (CKD-EPI)NonAf >90 (>60 ml/min/1.73 sqM) Glucose 171 H (74-99) mg/dL Lactic Ac Sepsis Rflx Plasma Lactic Acid Reji 2.2 H* (0.7-2.0) mmol/L Calcium 9.7 (8.4-10.2) mg/dL Total Bilirubin 0.7 (0.2-1.3) mg/dL AST 42 (17-59) U/L ALT 49 (4-49) U/L Alkaline Phosphatase 50 (38-126) U/L Troponin I (0.000-0.034) ng/mL Total Protein 7.2 (6.3-8.2) g/dL Albumin 4.2 (3.5-5.0) g/dL Amylase 60 (30-110) U/L Lipase 194 (23-300) U/L Coronavirus (PCR) (Not Detectd) 04/26/21 04/26/21 04/26/21 Range/Units 13:23 13:23 14:44 WBC (3.8-10.6) k/uL RBC (4.30-5.90) m/uL Hgb (13.0-17.5) gm/dL Hct (39.0-53.0) % MCV (80.0-100.0) fL MCH (25.0-35.0) pg MCHC (31.0-37.0) g/dL RDW (11.5-15.5) % Plt Count (150-450) k/uL MPV Neutrophils % % Lymphocytes % % Monocytes % % Eosinophils % % Basophils % % Neutrophils # (1.3-7.7) k/uL Lymphocytes # (1.0-4.8) k/uL Monocytes # (0-1.0) k/uL Eosinophils # (0-0.7) k/uL Basophils # (0-0.2) k/uL Sodium (137-145) mmol/L Potassium (3.5-5.1) mmol/L Chloride (98-107) mmol/L Carbon Dioxide (22-30) mmol/L Anion Gap mmol/L BUN (9-20) mg/dL Creatinine (0.66-1.25) mg/dL Est GFR (CKD-EPI)AfAm (>60 ml/min/1.73 sqM) Est GFR (CKD-EPI)NonAf (>60 ml/min/1.73 sqM) Glucose (74-99) mg/dL Lactic Ac Sepsis Rflx Y Plasma Lactic Acid Reji (0.7-2.0) mmol/L Calcium (8.4-10.2) mg/dL Total Bilirubin (0.2-1.3) mg/dL AST (17-59) U/L ALT (4-49) U/L Alkaline Phosphatase (38-126) U/L Troponin I <0.012 (0.000-0.034) ng/mL Total Protein (6.3-8.2) g/dL Albumin (3.5-5.0) g/dL Amylase (30-110) U/L Lipase (23-300) U/L Coronavirus (PCR) Not Detected (Not Detectd) - EKG Data EKG Comments: Ventricular rate 64 bpm, NC interval 148 ms, QRS duration 140 ms, QTC 501 ms, P RT axes 38/-50/22. Normal sinus rhythm, right bundle branch block, left anterior fascicular block, abnormal ECG. (Srini Mao) Disposition <Srini Mao - Last Filed: 04/26/21 15:08> Is patient prescribed a controlled substance at d/c from ED?: No Time of Disposition: 18:40 <José MiguelbobKayley Shilo - Last Filed: 04/30/21 00:39> Clinical Impression: Fall, Vertigo, Nausea and vomiting Disposition: HOME SELF-CARE Condition: Stable Instructions (If sedation given, give patient instructions): Dizziness (ED) Additional Instructions: Please follow up with a neurologist in 1 week for your symptoms. Return to the ED for any new or worsening symptoms. Prescriptions: Meclizine [Antivert] 25 mg PO TID PRN #25 tab PRN Reason: Vertigo Metoclopramide [Reglan] 10 mg PO TID PRN #15 tab PRN Reason: GERD Referrals: Zhane Lowry MD [Primary Care Provider] - 1-2 days Naomi Feng MD [REFERRING] - 1-2 days Lu Feng MD [REFERRING] - 1-2 days Rene Jackson DO [STAFF PHYSICIAN] - 1-2 days
[2021-04-26] MEDS ORDERED: METOCLOPRAMIDE 5 MG/ML 2 ML VIAL IVP STA (15:37)
[2021-04-26] MEDS ORDERED: MECLIZINE 12.5 MG TAB PO STA (15:38)
--- NOTE | 2021-04-26 16:08 | XR ---
EXAMINATION TYPE: XR chest 2V DATE OF EXAM: 04/26/2021 COMPARISON: 10/20/2017 HISTORY: 71-year-old male with abdominal pain TECHNIQUE: PA and lateral views FINDINGS: Heart limits of normal in size. Mild vascular prominence without consolidation or pleural effusion. S lightly low lung volumes. IMPRESSION: Prominent vasculature could reflect crowded markings from hypoventilatory changes versus mild pulmona ry vascular congestion. Clinically correlate.
--- NOTE | 2021-04-26 16:10 | XR ---
EXAMINATION TYPE: XR KUB DATE OF EXAM: 04/26/2021 Comparison: 06/30/2016 Clinical History: 71-year-old male abdominal pain Findings: No dilated small bowel loops or differential air-fluid levels. Mild scattered stool burden. Multiple surgical clips in the pelvis. A couple possible subtle calcifications in the left mid abdomen measuri ng up to 4 mm. No evidence for free intraperitoneal air. Impression: There may be a few small left renal calculi measuring up to 4 mm. No evidence for free air or bowel o bstruction. Mild stool burden.
[2021-04-26 17:00] VITALS: BP 136/67
--- NOTE | 2021-04-26 17:12 | CT ---
EXAMINATION TYPE: CT brain wo con DATE OF EXAM: 04/26/2021 COMPARISON: CT brain 10/20/2017 HISTORY: vertigo, nausea, vomiting CT DLP: 1068 mGycm Automated exposure control for dose reduction was used. Helical imaging through the brain. FINDINGS: There is no significant interval change. There is no hemorrhage or hydrocephalus. Periventricular whi te matter shows some scattered areas of hypoattenuation. Cortical atrophy is noted. Orbits show symme tric appearance. Some inflammatory changes present within the ethmoid air cells, possible polyp prese nt, axial image 1. The left midline. Mastoid air cells are well aerated, the calvarium is intact. There are cerebral vascular calcifications. IMPRESSION: STABLE BRAIN CT, NO ACUTE ABNORMALITY IS EVIDENT. 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
--- NOTE | 2021-04-26 17:54 | CT ---
EXAMINATION TYPE: CT angio head neck contrast and with 3-D Reconstruction rendering DATE OF EXAM: 04/26/2021 HISTORY: vertigo, nausea, vomiting COMPARISON: CT brain without contrast 04/26/2021 CT DLP: 758.3 mGycm. Automated Exposure Control for Dose Reduction was Utilized. TECHNIQUE: CTA scan of the neck is performed with IV Contrast, patient injected with 65 mL of Isovue 370, axial images are obtained, coronal and sagittal reformatted images are reviewed. 3D reconstruct ed images are created on an independent workstation and reviewed. FINDINGS: Neck CTA: The bilateral carotid arterial systems and the bilateral vertebral arterial systems are neg ative for flow-limiting stenoses or dissection. The venous structures are unremarkable. No incidental findings. Intracranial CTA: The anterior and posterior circulation are unremarkable. Dural venous sinuses are p atent. No incidental findings. IMPRESSION: No significant abnormality is seen. NASCET criteria was used in interpretation of this exam?
== END 2021-04-26 18:53 | disposition home or self-care (01) ==
LOC: EC 12:17
DX: R42 Dizziness and giddiness (principal); R11.2 Nausea with vomiting, unspecified; Z85.820 Personal history of malignant melanoma of skin; Z85.46 Personal history of malignant neoplasm of prostate; Z90.79 Acquired absence of other genital organ(s); Z79.899 Other long term (current) drug therapy
CPT/HCPCS: 99285 ×2; 96374 ×2; 96375 ×3; 96376 ×2; 96361 ×2; 93005; 80053; 82150; 83605; 83690; 84484; 85025; 87635; 71046; 74018; 70496; 70450; 70498; J2270; J2765; J2405; Q9967

== ENCOUNTER → 2021-08-13 | Outpatient (CLI) | payer MEDICARE ==
--- NOTE | 2021-08-14 05:05 | MR ---
EXAMINATION TYPE: MR brain and iac wo/w con DATE OF EXAM: 08/13/2021 COMPARISON: 11/13/2017 HISTORY: Hearing loss, dizziness. CONTRAST: Standard multiplanar, multisequence MRI departmental protocol images were obtained without contrast a nd with 10 mL intravenous Gadavist gadolinium contrast. Ventricles have normal size. There is a 2.6 cm rounded mass involving the posterior aspect of the cor pus callosum on the left side of midline. This shows some ring enhancement. Lesion has increased sign al on the T2 and FLAIR images. Margins are sharp. There is no significant surrounding edema. On the T2 and FLAIR images there are scattered multiple foci of increased signal at the maldonado-white ma tter junction measuring up to 7 mm. Total number is approximately 20 and these appear not significant ly different than old exam. There is no evidence of sellar mass. The brainstem is intact. There is no evidence of a posterior fos sa mass. There is no evidence of a cerebellopontine angle mass. The acoustic nerve and vestibular nerve appear normal. There is no pathologic posterior fossa enhancement. IMPRESSION: There is a ring-enhancing mass which appears to be arising from the posterior corpus callosum and natasha ears new compared to old exam. This could be primary tumor or metastatic disease. Margins are sharp. Lesion is very close to the ventricle and intraventricular meningioma also possible. White matter signal changes suggestive of microvascular ischemia or demyelinating disease appear stab le. No focal posterior fossa abnormality.
== END | disposition home or self-care (01) ==
LOC: RADMRIMAIN 17:55
PROVIDERS: ATTEND Otolaryngology
DX: G93.89 Other specified disorders of brain (principal); R90.89 Other abnormal findings on diagnostic imaging of central nervous system
CPT/HCPCS: 70553; A9585

== ENCOUNTER → 2021-08-27 | Outpatient (CLI) | payer MEDICARE ==
--- NOTE | 2021-08-27 13:42 | CT ---
EXAMINATION TYPE: CT ChestAbdPelvis w con DATE OF EXAM: 08/27/2021 COMPARISON: CT abdomen and pelvis July 20, 2018 and older studies. HISTORY: Melanoma, suspected mets. Also history of prostate cancer. CT DLP: 2191.5 mGycm. Automated Exposure Control for Dose Reduction was Utilized. CONTRAST: CT scan of the thorax, abdomen and pelvis is performed with IV Contrast, patient injected with 100 mL of Isovue M300. FINDINGS: LUNGS: Elevated right hemidiaphragm with right basilar linear scarring is redemonstrated. No suspicio us greater than 5 mm pulmonary nodules or masses. No pleural effusion or pneumothorax seen. MEDIASTINUM: There are no greater than 1 cm hilar or mediastinal lymph nodes. No cardiomegaly or pe ricardial effusion is seen. Moderate three-vessel coronary artery calcification LIVER/GB: Liver is diffusely low dense consistent with fatty infiltration. New heterogeneous 2.8 x 2. 6 cm low dense lesion in the liver adjacent to IVC axial image 50. Hounsfield units average -40 sugge sting fat density. Dependent density in gallbladder is consistent with gallbladder sludge and/or smal l stones is redemonstrated. PANCREAS: There is persistent and stable 1.5 cm low dense lesion in the mid to distal pancreatic body axial image 63 favoring a thin-walled cyst or cystic lesion unchanged in size from most recent CT pr esumed benign given interval stability. SPLEEN: There is 1 cm splenule in splenic hilum anteriorly axial image 60 redemonstrated. ADRENALS: No significant abnormality is seen. KIDNEYS: There are 4-6 calculi measuring 4 mm or smaller in size scattered throughout the left kidney redemonstrated. There is single 3 mm calculus right kidney coronal image 75 redemonstrated. There is symmetric cortical medullary uptake and excretion without evidence of hydronephrosis bilaterally. BOWEL: Evaluation bowel is slightly suboptimal as oral contrast only reaches level of cecum. There is no suspicious small or large bowel dilatation. There are diverticula throughout the colon most promi nent in the left and sigmoid colon. Surgical sutures sigmoid rectal junction axial image 107 are rede monstrated. PROSTATE/SEMINAL VESICLES: Prostate gland is surgically absent. Numerous surgical clips are redemonst rated extending into the left groin. LYMPH NODES: No greater than 1cm abdominal or pelvic lymph nodes are appreciated. OSSEOUS STRUCTURES: There is vacuum disc phenomenon with moderate disc space narrowing L4-L5 and L5-S 1 levels redemonstrated. A few prominent Schmorl nodes involving superior endplates at L3 at T12 leve l for reference along with T10 level are redemonstrated. Nonspecific sclerotic lesion T8 vertebral sa gittal image 72. This is outside [id number] on prior study. Osseous structures are demineralized. OTHER: There is moderate calcified plaque of aorta extending into branch vessels. IMPRESSION: No suspicious masses or adenopathy to suggest recurrent neoplasm or melanoma or prostatic adenopathy. Nonspecific sclerotic lesion T8 vertebra favors a benign bone island.
== END | disposition home or self-care (01) ==
LOC: RADCTMAIN 11:13
PROVIDERS: ATTEND Internal Medicine Hematology & Oncology
DX: D03.39 Melanoma in situ of other parts of face (principal); M89.8X8 Other specified disorders of bone, other site; Z85.46 Personal history of malignant neoplasm of prostate
CPT/HCPCS: 82565; 84520; 71260; 74177; 36415; Q9967 ×2